=== PATIENT | female | born 1945 | race Caucasian/White ===

== ENCOUNTER 2018-07-12 11:53 | Outpatient (CLI) | payer MEDICARE, OTHER | END 2018-07-12 11:54 | disposition home or self-care (01) | LOC: DI 11:53 | PROVIDERS: ATTEND Internal Medicine | DX: Z12.31 Encounter for screening mammogram for malignant neoplasm of breast (principal) | CPT/HCPCS: 77063 ==

== ENCOUNTER 2019-07-12 13:10 | Outpatient (CLI) | payer MEDICARE, OTHER ==
--- NOTE | 2019-07-12 15:35 | Mammography Report ---
Reason: SCREENING MAMMO Procedure Date: 07/12/2019 Accession Number: [id number] / [id number] Procedure: YOLIE - Screening Mammo w/Julián CPT Code: FULL RESULT: EXAM: Screening Mammo w/Julián DATE: 07/12/2019 2:07 PM CLINICAL HISTORY: Screening TECHNIQUE: (B) - Bilateral CC and MLO views were obtained. COMPARISON: 07/12/2018 PARENCHYMAL PATTERN: (A) - The breasts demonstrate scattered fibroglandular densities bilaterally. FINDINGS: Redemonstration of multiple scattered left breast nodules. The dominant nodule is a lobulated well-circumscribed mass with a radiolucent fatty hilum located in the retroareolar left breast, anterior one third, measuring 10 mm maximal diameter, unchanged. Otherwise, there are no suspicious masses, calcifications, or areas of distortion. IMPRESSION: Benign findings. BI-RADS category 2. Presumed retroareolar intramammary lymph node. RECOMMENDATION: (ANNUAL) - Recommend routine annual screening mammography. BI-RADS CATEGORY: (2) - Benign Findings. STANDARD QUALIFYING STATEMENTS: 1. This examination was not reviewed with the aid of Computer-Aided Detection (CAD). 2. A negative or benign imaging report should not preclude biopsy if clinically suspicious findings are present. 3. Dense breasts may obscure an underlying neoplasm. 4. This examination was reviewed with the aid of 3D breast imaging (tomosynthesis).
== END 2019-07-12 13:11 | disposition home or self-care (01) ==
LOC: DI 13:10
DX: Z12.31 Encounter for screening mammogram for malignant neoplasm of breast (principal)
CPT/HCPCS: 77063; 77067

== ENCOUNTER 2021-04-25 08:00 | Outpatient (CLI) | payer MEDICARE, OTHER ==
--- NOTE | 2021-04-25 17:18 | XRAY Report ---
PROCEDURE: Knee 4 View RT INDICATIONS: RIGHT KNEE PAIN TECHNIQUE: 4 views of the right knee(s) were acquired. COMPARISON: None. FINDINGS: Bones: No fractures or dislocations. Mild to moderate tricompartment osteoarthritis is seen more pr ominent in medial femoral tibial compartment. No suspicious bony lesions. Soft tissues: Small to moderate suprapatellar joint effusion is noted. No suspicious soft tissue calc ifications. IMPRESSION: Mild to moderate tricompartmental osteoarthritis more prominent in medial femoral tibial compartment. Small to moderate amount of suprapatellar joint effusion. No fracture or dislocation. Reviewed by: Adarsh Calles MD on 04/25/2021 5:17 PM PDT Approved by: Adarsh Calles MD on 04/25/2021 5:17 PM PDT Station ID: [id number]
== END 2021-04-25 23:59 | disposition home or self-care (01) ==
LOC: DI.S 08:00
PROVIDERS: ATTEND Physician Assistant
DX: M17.11 Unilateral primary osteoarthritis, right knee (principal); M25.461 Effusion, right knee

== ENCOUNTER 2021-05-14 14:16 | Outpatient (CLI) | payer MEDICARE, OTHER | END 2021-05-14 14:17 | disposition EMS.NT | LOC: EMS 14:16 | DX: M54.9 Dorsalgia, unspecified (principal); R11.0 Nausea ==

== ENCOUNTER 2022-02-24 08:00 | Outpatient (CLI) | payer MEDICARE, OTHER ==
--- NOTE | 2022-02-24 17:06 | XRAY Report ---
PROCEDURE: Chest 2 View X-Ray INDICATIONS: PRODUCTIVE COUGH TECHNIQUE: 2 view(s) of the chest. COMPARISON: None. FINDINGS: Surgical changes and devices: None. Lungs and pleura: No pleural effusions or pneumothorax. Lungs are clear. Mediastinum: Mediastinal contours are normal. Heart size is normal. Bones and chest wall: No suspicious bony abnormalities. Multilevel degenerative disc and endplate ch georgie in the thoracolumbar spine. Soft tissues appear unremarkable. IMPRESSION: No acute cardiopulmonary disease. Reviewed by: Nellie Edge MD on 02/24/2022 5:04 PM PDT Approved by: Nellie Edge MD on 02/24/2022 5:04 PM PDT Station ID: [id number]
== END 2022-02-24 23:59 | disposition home or self-care (01) ==
LOC: DI.S 08:00
PROVIDERS: ATTEND Physician Assistant Medical
DX: R05.8 Other specified cough (principal); Z20.822 Contact with and (suspected) exposure to COVID-19
CPT/HCPCS: 71046; U0004

== ENCOUNTER 2023-01-01 12:37 | Emergency (ER) | payer MEDICARE, OTHER ==
--- OUTSIDE RECORDS SUMMARY | 2023-01-01 12:57 | EXTERNAL MEDICAL SUMMARY RPT | Continuity of Care Document ---
:1945 Author Organization [facility] Address [address] [place] [address] Phone Care Team Providers Name Role Phone Unavailable Unavailable Unavailable Yovani Norman, Albert Unavailable Unavailable Mi Patient Registrar, Maribell Unavailable Unavai lable Allergies No information. Encounters No information. Functional Status No information. Immunizations No information. Medications date description facility 2022-10-26 00:00 [facility]relvir[facility]ritonavir [facility] 2022-10-26 00:00 nirmatrelvir-ritonavir [facility] 2022-10-26 00:00 hydrochlorothiazide [facility] 2022-10-27 00:00 hydrochlorothiazide [facility] 2022-10-28 00:00 hydrochlorothiazide [facility] 2022-10-26 00:00 estradiol [facility] 2022-10-27 00:00 estradiol [facility] 2022-10-28 00:00 estradiol [facility] 2022-10-26 00:00 hydrochlorothiazide [facility] 2022-10-27 00:00 hydrochlorothiazide [facility] 2022-10-28 00:00 hydrochlorothiazide [facility] 2022-10-26 00:00 nirmatrelvir-ritonavir [facility] 2022-10-26 00:00 nirmatrelvir-ritonavir [facility] 2022-10-26 00:00 meloxicam [facility] 2022-10-27 00:00 meloxicam [facility] 2022-10-28 00:00 meloxicam [facility] 2022-10-26 00:00 estradiol [facility] 2022-10-27 00:00 estradiol [facility] 2022-10-28 00:00 estradiol [facility] 2022-10-26 00:00 simvastatin [facility] 2022-10-27 00:00 simvastatin [facility] 2022-10-28 00:00 simvastatin [facility] 2022-10-26 00:00 nirmatrelvir-ritonavir [facility] 2022-10-26 00:00 nirmatrelvir-ritonavir [facility] 2022-10-26 00:00 estradiol [facility] 2022-10-27 00:00 estradiol [facility] 2022-10-28 00:00 estradiol [facility] 2022-10-26 00:00 quinapril [facility] 2022-10-27 00:00 quinapril [facility] 2022-10-28 00:00 quinapril [facility] 2022-10-26 00:00 simvastatin [facility] 2022-10-27 00:00 simvastatin [facility] 2022-10-28 00:00 simvastatin [facility] 2022-10-26 00:00 gabapentin [facility] 2022-10-27 00:00 gabapentin [facility] 2022-10-28 00:00 gabapentin [facility] 2022-10-26 00:00 hydrochlorothiazide [facility] 2022-10-27 00:00 hydrochlorothiazide [facility] 2022-10-28 00:00 hydrochlorothiazide [facility] 2022-10-26 00:00 quinapril [facility] 2022-10-27 00:00 quinapril [facility] 2022-10-28 00:00 quinapril [facility] 2022-10-26 00:00 estradiol [facility] 2022-10-27 00:00 estradiol [facility] 2022-10-28 00:00 estradiol [facility] 2022-10-26 00:00 quinapril [facility] 2022-10-27 00:00 quinapril [facility] 2022-10-28 00:00 quinapril [facility] 2022-10-26 00:00 hydrochlorothiazide [facility] 2022-10-27 00:00 hydrochlorothiazide [facility] 2022-10-28 00:00 hydrochlorothiazide [facility] 2022-10-26 00:00 simvastatin [facility] 2022-10-27 00:00 simvastatin [facility] 2022-10-28 00:00 simvastatin [facility] 2022-10-26 00:00 gabapentin [facility] 2022-10-27 00:00 gabapentin [facility] 2022-10-28 00:00 gabapentin [facility] 2022-10-26 00:00 meloxicam [facility] 2022-10-27 00:00 meloxicam [facility] 2022-10-28 00:00 meloxicam [facility] 2022-10-26 00:00 quinapril [facility] 2022-10-27 00:00 quinapril [facility] 2022-10-28 00:00 quinapril [facility] 2022-10-26 00:00 gabapentin [facility] 2022-10-27 00:00 gabapentin [facility] 2022-10-28 00:00 gabapentin [facility] 2022-10-26 00:00 simvastatin [facility] 2022-10-27 00:00 simvastatin [facility] 2022-10-28 00:00 simvastatin [facility] 2022-10-26 00:00 meloxicam [facility] 2022-10-27 00:00 meloxicam [facility] 2022-10-28 00:00 meloxicam [facility] 2022-10-26 00:00 meloxicam [facility] 2022-10-27 00:00 meloxicam [facility] 2022-10-28 00:00 meloxicam [facility] 2022-10-26 00:00 gabapentin [facility] 2022-10-27 00:00 [facility]abapentin [facility] 2022-10-28 00:00 gabapentin [facility] Problems date description facility 2022-10-26 00:00 Acute COVID-19 [facility] 2022-10-26 00:00 COVID-19 [facility] Procedures date description facility 2022-10-26 00:00 Visit Code Hold [facility] Results/Labs No information. Social History date description facility 2022-10-26 00:00 Former smoker [facility] Vital Signs date measurement value units 2022-10-26 00:00 BMI 33.38 kg/m2 2022-10-26 00:00 BP_diastolic 85 mmHg 2022-10-26 00:00 BP_systolic 194 mmHg 2022-10-26 00:00 heart_rate 86 /min 2022-10-26 00:00 height_metric 154.94 cm 2022-10-26 00:00 height_standard 61 in 2022-10-26 00:00 respiration_rate 16 /min 2022-10-26 00:00 temperature_metric 37.17 C 2022-10-26 00:00 temperature_standard 98.9 F 2022-10-26 00:00 weight_metric 79.83 kg 2022-10-26 00:00 weight_standard 176 lb
--- NOTE | 2023-01-01 13:15 | ED Physician Documentation ---
PD HPI ABD PAIN - Stated complaint Stated Complaint: ABD PX,VOMITING,GEN WEAKNESS - Chief complaint Chief Complaint: Abd Pain - History obtained from History obtained from: Patient - Additional information Additional information: 77-year-old woman with history of hypertension and type 2 diabetes and very remote history of stage I ovarian cancer approximately 30 years ago and oophorectomy and prior to that had a hysterectomy for fibroid uterus presents with severe abdominal pain starting 2 nights ago. Initially was cramping and fleeting but intermittent but when she had it was very severe. Pain is much better now but has not been able to eat or drink simply due to lack of appetite since then. She had a large bowel movement on the first day and since then has had a small bowel movement today. Had nausea the first night with vomiting, this is pretty much resolved now 2. No associated fevers. PD PAST MEDICAL HISTORY - Allergies Allergies/Adverse Reactions: Allergies Allergy/AdvReac Type Severity Reaction Status Date / Time Penicillins Allergy Unknown Verified 01/01/23 12:48 PD ED PE NORMAL - Vitals Vital signs reviewed: Yes - General General: Alert and oriented X 3, No acute distress - Cardiac Cardiac: RRR, No murmur - Respiratory Respiratory: No respiratory distress, Clear bilaterally - Abdomen Abdomen: Other (Hyperactive bowel sounds with left lower quadrant tenderness but no surgical signs) - Derm Derm: No rash - Extremities Extremities: No edema, No calf tenderness / cord - Neuro Neuro: Alert and oriented X 3, Normal speech Results - Vitals Vitals: Vital Signs - 24 hr 01/01/23 01/01/23 01/01/23 12:44 15:06 16:34 Temperature 36.5 C Heart Rate 84 75 80 Respiratory 16 20 18 Rate Blood Pressure 150/75 H 184/81 H 186/72 H O2 Saturation 99 98 96 Oxygen O2 Source Room air - Labs Labs: Laboratory Tests 01/01/23 01/01/23 01/01/23 13:35 13:49 15:30 WBC 8.1 RBC 4.18 L Hgb 13.0 Hct 39.5 MCV 94.5 MCH 31.1 H MCHC 32.9 RDW 11.9 L Plt Count 240 MPV 9.9 Neut # (Auto) 6.0 Lymph # (Auto) 1.0 L [place] # (Auto) 0.9 Eos # (Auto) 0.1 Baso # (Auto) 0.0 Absolute Nucleated RBC 0.00 Nucleated RBC % 0.0 Sodium 133 L Potassium 4.0 Chloride 95 L Carbon Dioxide 26 Anion Gap 12.0 BUN 25 H Creatinine 1.0 Estimated GFR (MDRD) 54 L Glucose 238 H Calcium 9.3 Total Bilirubin 1.0 AST 16 ALT 22 Alkaline Phosphatase 60 Total Protein 6.8 Albumin 4.0 Globulin 2.8 Albumin/Globulin Ratio 1.4 Lipase 35 Urine Color YELLOW Urine Clarity CLEAR Urine pH 6.0 Ur Specific [place] 1.015 Urine Protein NEGATIVE Urine Glucose (UA) 100 H Urine Ketones TRACE Urine Occult Blood NEGATIVE Urine Nitrite NEGATIVE Urine Bilirubin NEGATIVE Urine Urobilinogen 0.2 (NORMAL) Ur Leukocyte Esterase NEGATIVE Ur Microscopic Review NOT INDICATED Urine Culture Comments NOT INDICATED - Rads (name of study) CT A/P Relevant Findings:: Final report received, EMP independent interpretation of test (CT of the abdomen pelvis with IV contrast demonstrating fluid-filled small bowel loops, ileus versus partial SBO, diverticulosis, small hiatal hernia and distal esophageal thickening, fatty liver, atherosclerosis) PD Medical Decision Making - ED course ED course: 77-year-old woman had severe abdominal pain 2 nights ago and really has not been eating or drinking much since but the severe pain is gone. She has a left-sided abdominal tenderness and a CT showing ileus versus partial SBO. Given the time course and history above I suspect she probably has a resolving, self resolving SBO. I discussed the case with our on-call surgeon, Dr. Yang who recommended Gastrografin challenge and subsequent reevaluation with plain film. Subsequently we did challenge her with Gastrografin and water. She subsequently had a bowel movement and an x-ray demonstrated follow-through contrast to the colon. Departure - Departure Disposition: 01 Home, Self Care Clinical Impression: Partial small bowel obstruction Condition: Good Record reviewed to determine appropriate education?: Yes Instructions: Obstruction Sm Bowel, ED Diet Clear Liquid Comments: As discussed, given the history, CT findings I suspect you had a bowel obstruction on Wednesday which has now resolved and you are just feeling the remainder of it. As discussed, also findings on imaging demonstrating a thickened distal esophagus and you should talk with your primary care physician about referral for gastroenterology and upper endoscopy for that. Return for new or worsening symptoms. Clear liquid diet for the next 24 hours.
[2023-01-01] MEDS ORDERED: iohexoL-300 100 ML VIAL ONE (13:17)
[2023-01-01 13:41] LABS: BASOPHILS % (AUTO) 0.2 %; EOSINOPHILS # (AUTO) 0.1 10^3/uL (0.0-0.7); EOSINOPHILS % (AUTO) 1.5 %; HCT - HEMATOCRIT 39.5 % (37.0-47.0); LYMPHOCYTES % (AUTO) 12.3 %; MEAN CORPUSCULAR HEMOGLOBIN 31.1 pg (27.0-31.0); MEAN CORPUSCULAR HGB CONC 32.9 g/dL (32.0-36.0); MEAN CORPUSCULAR VOLUME 94.5 fL (81.0-99.0); MEAN PLATELET VOLUME 9.9 fL (7.9-10.8); MONOCYTES # (AUTO) 0.9 10^3/uL (0.0-1.0); MONOCYTES % (AUTO) 11.2 %; NEUTROPHILS % (AUTO) 74.6 %; PLT - PLATELET COUNT 240 10^3/uL (130-450); RED BLOOD COUNT 4.18 10^6/uL (4.20-5.40); RED CELL DISTRIBUTION WIDTH 11.9 % (12.0-15.0); WHITE BLOOD COUNT 8.1 x10^3/uL (4.8-10.8)
[2023-01-01 14:07] LABS: ALBUMIN/GLOBULIN RATIO 1.4 (1.0-2.2); CALCIUM 9.3 mg/dL (8.5-10.3); TOTAL PROTEIN 6.8 g/dL (6.7-8.2)
[2023-01-01] MEDS ORDERED: SODIUM CHLORIDE 0.9% 1,000 ML IV STA (14:24)
[2023-01-01] MEDS ORDERED: iohexoL-300 100 ML VIAL IVP ONE (15:26)
--- NOTE | 2023-01-01 15:33 | CT Report ---
PROCEDURE: ABDOMEN/PELVIS W INDICATIONS: abd pain CONTRAST: 100ml omni 300 TECHNIQUE: After the administration of intravenous contrast, 5 mm thick sections acquired from the diaphragms to the symphysis. 5 mm thick coronal and sagittal reformats were acquired. For radiation dose reducti on, the following was used: automated exposure control, adjustment of mA and/or kV according to jess ent size. COMPARISON: None. FINDINGS: Image quality: Excellent. ABDOMEN: Lung bases: There is a tiny nodule in the left lower lobe (series 4 image 11). Heart size is normal. There is a small hiatal hernia. Concentric thickening of the distal esophagus. Solid organs: Liver and spleen are normal in size and enhancement. There is moderate hepatic steatos is. Gallbladder is normal. Biliary system is non dilated. Pancreas enhances normally. No adrenal n odules. Kidneys demonstrate normal size and enhancement, without hydronephrosis. Peritoneum and bowel: Fluid-filled proximal small loops are mildly dilated measuring up to 3.7 cm and containing air-fluid levels. Distal small bowel appears normal in caliber. A transitional point is n ot definitively identified. Scattered colonic diverticula. No CT findings to suggest acute diverticulitis. No free fluid or air. Nodes and vessels: No retroperitoneal or mesenteric adenopathy by size criteria. Aorta and inferior vena cava are normal in size. Owxblugn-sw-isawey atherosclerotic calcification. Miscellaneous: No ventral hernias. Mild stranding in the anterior abdominal wall adjacent to the um bilicus, nonspecific. PELVIS: Genitourinary: Bladder wall thickness is normal. Miscellaneous: No inguinal hernias or adenopathy. Bones: No suspicious bony lesions. No vertebral body compression fractures. Grade 1 anterolisthesi s of L4 on L5. Mild levoscoliosis. Severe spondylolysis. IMPRESSION: 1. Fluid-filled small bowel loops are mildly dilated proximally, tapering to normal caliber distally. A transitional point is not definitively identified. There are multiple air-fluid levels. The CT fin dings may be secondary to ileus but early or partial small bowel obstruction is a differential diagno sis. 2. Diverticulosis without acute diverticulitis. 3. Small hiatal hernia. There is concentric thickening of the distal esophagus. Consider esophagram o r EGD for further evaluation. 4. Hepatic steatosis. 5. Dlhgfsvv-[id number]-zsdnwm atherosclerosis. Reviewed by: Suki Ballesteros MD on 01/01/2023 3:31 PM PDT Approved by: Suki Ballesteros MD on 01/01/2023 3:31 PM PDT Station ID: [id number]
[2023-01-01] MEDS ORDERED: DIATR MEGLU/DIATRIZOATE SODIUM 120 ML BOTTLE PO ONE (15:36)
[2023-01-01 15:39] LABS: BILIRUBIN,URINE NEGATIVE (NEGATIVE); GLUCOSE, URINE (UA) 100 mg/dL (NEGATIVE); KETONES,URINE (UA) TRACE mg/dL (NEGATIVE); LEUKOCYTE ESTERASE, URINE NEGATIVE (NEGATIVE); NITRITE,URINE NEGATIVE (NEGATIVE); OCCULT BLOOD,URINE NEGATIVE (NEGATIVE); PROTEIN,URINE NEGATIVE (NEGATIVE); UROBILINOGEN,URINE 0.2 (NORMAL) E.U./dL (NORMAL)
[2023-01-01 15:40] LABS: CLARITY,URINE CLEAR (CLEAR)
[2023-01-01] MEDS ORDERED: DIATR MEGLU/DIATRIZOATE SODIUM 120 ML BOTTLE ONE (16:23)
--- NOTE | 2023-01-01 18:42 | XRAY Report ---
PROCEDURE: Abdomen 1 View X-Ray INDICATIONS: Possible SBO status post Gastrografin TECHNIQUE: One view of the abdomen acquired. COMPARISON: CT, 01/01/2023 FINDINGS: Surgical changes and devices: None. Bowel: Bowel gas pattern is normal. The administered Gastrografin contrast can be seen within the c olon and the distal small bowel. Soft tissues: No suspicious abdominal calcifications. Visualized solid organ contours appear normal in size. Bones: No suspicious bony lesions. IMPRESSION: Oral contrast has reached the colon, which confirms no complete small bowel obstruction. Differential diagnosis includes ileus as well as resolved small bowel obstruction, and partial small bowel obstru ction. Reviewed by: Miles Borrero MD on 01/01/2023 5:40 PM ANDRE Approved by: Miles Borrero MD on 01/01/2023 5:40 PM ANDRE Station ID: [id number]
[2023-01-01 19:06] VITALS: BP 173/91
== END 2023-01-01 19:14 | disposition home or self-care (01) ==
LOC: ED 12:37
DX: K56.600 Partial intestinal obstruction, unspecified as to cause (principal); I10 Essential (primary) hypertension
CPT/HCPCS: 36415; 74018; 74177; 80053; 81003; 83690; 85025; 99284; 99285; Q9963; Q9967; 81001; 87086

== ENCOUNTER 2023-03-10 13:10 | Outpatient (CLI) | payer MEDICARE, OTHER | END 2023-03-10 23:59 | disposition EMS.NT | LOC: EMS 13:10 | DX: R42 Dizziness and giddiness (principal) ==

== ENCOUNTER 2023-06-07 10:29 | Outpatient (CLI) | payer MEDICARE, OTHER ==
[2023-06-07 15:30] LABS: BASOPHILS % (AUTO) 0.7 %; EOSINOPHILS # (AUTO) 0.2 10^3/uL (0.0-0.7); HCT - HEMATOCRIT 36.5 % (37.0-47.0); HGB - HEMOGLOBIN 11.9 g/dL (12.0-16.0); LYMPHOCYTES # (AUTO) 1.8 10^3/uL (1.5-3.5); LYMPHOCYTES % (AUTO) 32.2 %; MEAN CORPUSCULAR HEMOGLOBIN 31.4 pg (27.0-31.0); MEAN CORPUSCULAR HGB CONC 32.6 g/dL (32.0-36.0); MEAN CORPUSCULAR VOLUME 96.3 fL (81.0-99.0); MEAN PLATELET VOLUME 10.7 fL (7.9-10.8); MONOCYTES # (AUTO) 0.5 10^3/uL (0.0-1.0); MONOCYTES % (AUTO) 8.6 %; NEUTROPHILS % (AUTO) 54.3 %; PLT - PLATELET COUNT 206 10^3/uL (130-450); RED BLOOD COUNT 3.79 10^6/uL (4.20-5.40); RED CELL DISTRIBUTION WIDTH 12.1 % (12.0-15.0); WHITE BLOOD COUNT 5.5 x10^3/uL (4.8-10.8)
[2023-06-07 15:38] LABS: ALBUMIN 4.2 g/dL (3.2-5.5); ALBUMIN/GLOBULIN RATIO 1.9 (1.0-2.2); ALKALINE PHOSPHATASE 64 IU/L (42-121); ALT ALANINE AMINOTRANSFERASE 20 IU/L (10-60); AST ASPARTATE AMINOTRANSFERASE 16 IU/L (10-42); BILIRUBIN,TOTAL 0.5 mg/dL (0.2-1.0); BUN - BLOOD UREA NITROGEN 23 mg/dL (6-20); CARBON DIOXIDE - CO2 29 mmol/L (21-32); CHLORIDE 101 mmol/L (101-111); CHOL/HDL RATIO 3.4 (<4.4); CHOLESTEROL 179 mg/dL; CREATININE 1.1 mg/dL (0.6-1.3); GFR - MDRD 48 (>89); GLUCOSE 129 mg/dL (74-104); HDL CHOLESTEROL 52 mg/dL; LDL CHOLESTEROL,CALCULATED 78 mg/dL; LDL/HDL RATIO 1.5 (<4.4); POTASSIUM 4.6 mmol/L (3.5-4.5); SODIUM 135 mmol/L (135-145); TOTAL PROTEIN 6.4 g/dL (6.4-8.9); TRIGLYCERIDES 245 mg/dL (48-352); VLDL CHOLESTEROL 49 mg/dL
[2023-06-07 20:46] LABS: ESTIMATED AVERAGE GLUCOSE 148 mg/dL (70-100); HEMOGLOBIN A1c% 6.8 % (4.27-6.07)
== END 2023-06-07 10:30 | disposition home or self-care (01) ==
LOC: LAB.S 10:29
PROVIDERS: ATTEND Internal Medicine
DX: I10 Essential (primary) hypertension (principal); E11.9 Type 2 diabetes mellitus without complications; M17.9 Osteoarthritis of knee, unspecified
CPT/HCPCS: 36415; 80053; 80061; 83036; 83721; 85025

== ENCOUNTER 2023-06-15 13:11 | Outpatient (CLI) | payer MEDICARE, OTHER ==
[2023-06-15 13:49] LABS: ALBUMIN 4.3 g/dL (3.2-5.5); ALBUMIN/GLOBULIN RATIO 2.3 (1.0-2.2); BILIRUBIN,TOTAL 0.4 mg/dL (0.2-1.0); CALCIUM 9.9 mg/dL (8.5-10.3); POTASSIUM 4.9 mmol/L (3.5-4.5); TOTAL PROTEIN 6.2 g/dL (6.4-8.9)
[2023-06-15 14:15] LABS: CREATININE,URINE 20.1 mg/dL
[2023-06-15 14:20] LABS: MICROALBUMIN,URINE < 0.7 mg/dL
== END 2023-06-15 13:12 | disposition home or self-care (01) ==
LOC: LAB 13:11
PROVIDERS: ATTEND Internal Medicine
DX: Z91.89 Other specified personal risk factors, not elsewhere classified (principal); E11.9 Type 2 diabetes mellitus without complications
CPT/HCPCS: 36415; 80053; 82043; 82570

== ENCOUNTER 2023-11-22 10:05 | Outpatient (CLI) | payer MEDICARE, OTHER | END 2023-11-22 10:06 | disposition home or self-care (01) | LOC: LAB.S 10:05 | PROVIDERS: ATTEND Physician Assistant Medical | DX: N39.0 Urinary tract infection, site not specified (principal) | CPT/HCPCS: 87086; 87181 ==

== ENCOUNTER 2023-11-24 14:05 | Emergency (ER) | payer MEDICARE, OTHER ==
[2023-11-24 14:46] LABS: BILIRUBIN,URINE NEGATIVE (NEGATIVE); GLUCOSE, URINE (UA) NEGATIVE (NEGATIVE); KETONES,URINE (UA) NEGATIVE (NEGATIVE); LEUKOCYTE ESTERASE, URINE NEGATIVE (NEGATIVE); NITRITE,URINE NEGATIVE (NEGATIVE); OCCULT BLOOD,URINE NEGATIVE (NEGATIVE); PROTEIN,URINE NEGATIVE (NEGATIVE); UROBILINOGEN,URINE 0.2 (NORMAL) E.U./dL (NORMAL)
[2023-11-24 14:47] LABS: CLARITY,URINE CLEAR (CLEAR)
--- NOTE | 2023-11-24 14:53 | ED Physician Documentation ---
History of Present Illness - Stated complaint Stated Complaint: CONFUSION,GEN WEAKNESS - Chief complaint Chief Complaint: General - History obtained from History obtained from: Patient, Family - History of Present Illness Timing: Other (months) Pain level max: 0 Pain level now: 0 - Additonal information Additional information: Patient is a 77-year-old female who presents to the emergency department with confusion. This been ongoing for the past several months. She is accompanied by her daughter. The patient is unable to give much history. The patient's daughter states that the patient lives alone, she has had increasing episodes of confusion in frequency and severity over the past 4 to 5 months. The patient has been recurrently treated for UTIs. Family states no other medication changes. Recently did finish an antibiotic. No fevers. No chills. No nausea or vomiting. No falls. No trauma. No headaches. No seizure activity. Patient states that she did not take her blood pressure medication today. Review of Systems Constitutional: denies: Fever, Chills Respiratory: denies: Cough GI: denies: Vomiting, Diarrhea Skin: denies: Rash Musculoskeletal: denies: Neck pain, Back pain Neurologic: denies: Headache PD PAST MEDICAL HISTORY - Past Medical History Past Medical History: Yes Cardiovascular: Hypertension, High cholesterol Endocrine/Autoimmune: Type 2 diabetes - Present Medications Home Medications: Ambulatory Orders Medication Instructions Recorded Confirmed Celecoxib 100 mg PO DAILY 11/24/23 Gabapentin [Neurontin] 300 mg PO TID 11/24/23 Lisinopril [Zestril] 40 mg PO DAILY 11/24/23 Nitrofurantoin [Macrobid] 100 mg PO TID 11/24/23 QUEtiapine [SEROquel] 25 mg PO QPM #30 tablet 11/24/23 Simvastatin [Zocor] 40 mg PO DAILY 11/24/23 hydroCHLOROthiazide [Hydrodiuril] 25 mg PO DAILY 11/24/23 metFORMIN [Glucophage] 750 mg PO DAILY 11/24/23 traMADol [Ultram] 50 mg PO TID 11/24/23 - Allergies Allergies/Adverse Reactions: Allergies Allergy/AdvReac Type Severity Reaction Status Date / Time Penicillins Allergy Unknown Verified 11/24/23 14:33 PD ED PE NORMAL - Vitals Vital signs reviewed: Yes - General General: Alert and oriented X 3, No acute distress - HEENT HEENT: PERRL, Moist mucous membranes - Neck Neck: Supple, no meningeal sign - Cardiac Cardiac: RRR, Strong equal pulses - Respiratory Respiratory: No respiratory distress, Clear bilaterally - Abdomen Abdomen: Soft, Non tender, Non distended - Derm Derm: Warm and dry - Extremities Extremities: Normal ROM s pain, No edema, No calf tenderness / cord - Neuro Neuro: Alert and oriented X 3, Other (Patient is alert and oriented x 3, but slow to respond, often loses her train of thought during conversation and is easily distractible. Difficulty stringing thoughts fully together.) - Psych Psych: Normal mood, Normal affect Results - Vitals Vitals: Vital Signs - 24 hr 11/24/23 11/24/23 11/24/23 14:08 15:02 17:17 Temperature 2.2 C L 36.4 C L Heart Rate 66 73 Respiratory 17 18 Rate Blood Pressure 206/122 H 182/78 H O2 Saturation 100 100 11/24/23 11/24/23 18:08 18:40 Temperature 36.5 C Heart Rate 68 73 Respiratory 17 16 Rate Blood Pressure 153/64 H 152/72 H O2 Saturation 99 100 Oxygen O2 Source Room air - Labs Labs: Laboratory Tests 11/24/23 11/24/23 11/24/23 14:20 14:34 15:00 WBC 6.4 RBC 4.02 L Hgb 12.2 Hct 36.4 L MCV 90.5 MCH 30.3 MCHC 33.5 RDW 11.7 L Plt Count 303 MPV 9.6 Neut # (Auto) 4.1 Lymph # (Auto) 1.5 [place] # (Auto) 0.5 Eos # (Auto) 0.2 Baso # (Auto) 0.0 Absolute Nucleated RBC 0.00 Nucleated RBC % 0.0 Sodium Potassium Chloride Carbon Dioxide Anion Gap BUN Creatinine Estimated GFR (MDRD) Glucose POC Whole Bld Glucose Calcium Magnesium Total Bilirubin AST ALT Alkaline Phosphatase Total Protein Albumin Globulin Albumin/Globulin Ratio Lipase TSH Urine Color YELLOW Urine Clarity CLEAR Urine pH 6.0 Ur Specific [place] <=1.005 Urine Protein NEGATIVE Urine Glucose (UA) NEGATIVE Urine Ketones NEGATIVE Urine Occult Blood NEGATIVE Urine Nitrite NEGATIVE Urine Bilirubin NEGATIVE Urine Urobilinogen 0.2 (NORMAL) Ur Leukocyte Esterase NEGATIVE Ur Microscopic Review NOT INDICATED Urine Culture Comments NOT INDICATED Urine Opiates Screen NEGATIVE Ur Buprenorphine Scrn NEGATIVE Ur Oxycodone Screen NEGATIVE Urine Methadone Screen NEGATIVE Ur Barbiturates Screen NEGATIVE Ur Tricyclics Screen NEGATIVE Ur Phencyclidine Scrn NEGATIVE Ur Amphetamine Screen NEGATIVE U Methamphetamines Scrn NEGATIVE U Benzodiazepines Scrn NEGATIVE Urine Cocaine Screen NEGATIVE U Cannabinoids Screen NEGATIVE Ur Drug Screen Comment CUTOFF CONC BELOW: Ethyl Alcohol 11/24/23 11/24/23 15:00 16:19 WBC RBC Hgb Hct MCV MCH MCHC RDW Plt Count MPV Neut # (Auto) Lymph # (Auto) [place] # (Auto) Eos # (Auto) Baso # (Auto) Absolute Nucleated RBC Nucleated RBC % Sodium 125 L Potassium 4.1 Chloride 90 L Carbon Dioxide 27 Anion Gap 8.0 BUN 17 Creatinine 0.9 Estimated GFR (MDRD) 61 L Glucose 143 H POC Whole Bld Glucose 126 H Calcium 9.7 Magnesium 1.7 Total Bilirubin 0.6 AST 22 ALT 25 Alkaline Phosphatase 58 Total Protein 6.7 Albumin 4.8 Globulin 1.9 L Albumin/Globulin Ratio 2.5 H Lipase 55 TSH 2.85 Urine Color Urine Clarity Urine pH Ur Specific [place] Urine Protein Urine Glucose (UA) Urine Ketones Urine Occult Blood Urine Nitrite Urine Bilirubin Urine Urobilinogen Ur Leukocyte Esterase Ur Microscopic Review Urine Culture Comments Urine Opiates Screen Ur Buprenorphine Scrn Ur Oxycodone Screen Urine Methadone Screen Ur Barbiturates Screen Ur Tricyclics Screen Ur Phencyclidine Scrn Ur Amphetamine Screen U Methamphetamines Scrn U Benzodiazepines Scrn Urine Cocaine Screen U Cannabinoids Screen Ur Drug Screen Comment Ethyl Alcohol < 10.0 - Rads (name of study) brain MRI Relevant Findings:: Final report received, See rad report PD Medical Decision Making - ED course Complexity details: reviewed results, re-evaluated patient, considered differential, d/w patient, d/w family ED course: No acute findings on MRI. Laboratory testing does show hyponatremia, was given 2 L of IV fluid. Given the gradual onset of her confusion and her normal sodium levels during the confusion, I think this is more likely career representative of dementia. Recommend that she follow-up with her doctor for further testing. Patient does not want to stay in the hospital. Family has been staying with the patient. She states that she will take the Seroquel if it is prescribed for her, will prescribe this to help with agitation and sundowning. Family does report that she becomes agitated, especially at night. No UTI. Patient is well-appearing, nontoxic. Afebrile. Patient and family counseled regarding signs and symptoms for which I believe and urgent re-evaluation would be necessary. Patient with good understanding of and agreement to plan and is comfortable going home at this time This document was made in part using voice recognition software. While efforts are made to proofread this document, sound alike and grammatical errors may occur. Departure - Departure Disposition: 01 Home, Self Care Clinical Impression: Hyponatremia, Confusion Condition: Stable Instructions: ED Confusion Follow-Up: Liza Crooks MD [Primary Care Provider] - Within 1 week Prescriptions: QUEtiapine [SEROquel] 25 mg PO QPM #30 tablet Comments: Your sodium levels were low today. This can cause confusion, but given your history of this worsening over several months I am concerned about dementia. Your MRI does not show any acute findings today Your sodium level should be rechecked with your doctor in 1 week. Will also start you on Seroquel, this medication can be taken at night and will help with your confusion as well. The dose can be increased with her doctor as needed. The medication was sent to [facility] in [place]. Forms: PCP List Discharge Date/Time: 11/24/23 18:52
[2023-11-24 15:12] LABS: BASOPHILS % (AUTO) 0.6 %; EOSINOPHILS # (AUTO) 0.2 10^3/uL (0.0-0.7); EOSINOPHILS % (AUTO) 3.7 %; HCT - HEMATOCRIT 36.4 % (37.0-47.0); HGB - HEMOGLOBIN 12.2 g/dL (12.0-16.0); LYMPHOCYTES # (AUTO) 1.5 10^3/uL (1.5-3.5); LYMPHOCYTES % (AUTO) 23.9 %; MEAN CORPUSCULAR HEMOGLOBIN 30.3 pg (27.0-31.0); MEAN CORPUSCULAR HGB CONC 33.5 g/dL (32.0-36.0); MEAN CORPUSCULAR VOLUME 90.5 fL (81.0-99.0); MEAN PLATELET VOLUME 9.6 fL (7.9-10.8); MONOCYTES # (AUTO) 0.5 10^3/uL (0.0-1.0); MONOCYTES % (AUTO) 8.2 %; NEUTROPHILS # (AUTO) 4.1 10^3/uL (1.5-6.6); NEUTROPHILS % (AUTO) 63.3 %; PLT - PLATELET COUNT 303 10^3/uL (130-450); RED BLOOD COUNT 4.02 10^6/uL (4.20-5.40); RED CELL DISTRIBUTION WIDTH 11.7 % (12.0-15.0); WHITE BLOOD COUNT 6.4 x10^3/uL (4.8-10.8)
[2023-11-24 15:25] LABS: AMPHETAMINE SCREEN,URINE NEGATIVE (NEGATIVE); BARBITURATE SCREEN,UR NEGATIVE (NEGATIVE); BENZODIAZEPINES SCREEN, URINE NEGATIVE (NEGATIVE); BUPRENORPHINE SCREEN, URINE NEGATIVE (NEGATIVE); COCAINE SCREEN URINE NEGATIVE (NEGATIVE); METHADONE SCREEN, URINE NEGATIVE (NEGATIVE); METHAMPHETAMINES SCREEN, URINE NEGATIVE (NEGATIVE); OPIATE SCREEN, URINE NEGATIVE (NEGATIVE); OXYCODONE SCREEN, URINE NEGATIVE (NEGATIVE); THC CANNABINOID SCREEN, URINE NEGATIVE (NEGATIVE); TRICYCLIC ANTIDEPRESSANT,URINE NEGATIVE (NEGATIVE)
[2023-11-24 15:36] LABS: ALBUMIN 4.8 g/dL (3.2-5.5); ALBUMIN/GLOBULIN RATIO 2.5 (1.0-2.2); ALKALINE PHOSPHATASE 58 IU/L (42-121); ALT ALANINE AMINOTRANSFERASE 25 IU/L (10-60); AST ASPARTATE AMINOTRANSFERASE 22 IU/L (10-42); BILIRUBIN,TOTAL 0.6 mg/dL (0.2-1.0); BUN - BLOOD UREA NITROGEN 17 mg/dL (6-20); CALCIUM 9.7 mg/dL (8.5-10.3); CARBON DIOXIDE - CO2 27 mmol/L (21-32); CHLORIDE 90 mmol/L (101-111); CREATININE 0.9 mg/dL (0.6-1.3); ETOH - ETHANOL < 10.0 mg/dL; GFR - MDRD 61 (>89); GLUCOSE 143 mg/dL (74-104); LIPASE 55 U/L (11-82); MAGNESIUM 1.7 mg/dL (1.7-2.3); POTASSIUM 4.1 mmol/L (3.5-4.5); SODIUM 125 mmol/L (135-145); TOTAL PROTEIN 6.7 g/dL (6.4-8.9)
[2023-11-24 15:47] LABS: THYROID STIMULATING HORMONE 2.85 uIU/mL (0.34-5.60)
--- NOTE | 2023-11-24 15:54 | MRI Report ---
PROCEDURE: Brain WO INDICATIONS: confusion TECHNIQUE: Noncontrast axial T1 spin echo, axial T2 fast spin echo, sagittal and axial FLAIR, coronal T2 fast sp in echo, axial gradient echo, axial diffusion and ADC through the brain. COMPARISON: None. FINDINGS: Image quality: Excellent. CSF Spaces: Basal cisterns are patent. No extra-axial fluid collections. Ventricles are normal in size and shape. Brain: No intracranial masses or hemorrhage. Frye/white matter interface is normal. There is mild d iffuse cerebral volume loss. Mild degree of patchy high FLAIR signal within the periventricular and s ubcortical white matter. Brainstem appears normal. Diffusion-weighted images demonstrate no acute i schemic insult. No chronic ischemic insults. Normal intravascular flow voids are present. Skull and face: Calvarium has normal marrow signal. Orbits appear normal. Sinuses: Small amount of left mastoid fluid. Sinuses and mastoids are otherwise clear. IMPRESSION: 1. No acute process. No recent infarct. 2. Mild volume loss and small vessel ischemic disease. Reviewed by: Harpreet Mcdowell MD on 11/24/2023 3:53 PM PST Approved by: Harpreet Mcdowell MD on 11/24/2023 3:53 PM PST Station ID: [id number]
[2023-11-24] MEDS: SODIUM CHLORIDE 0.9% 1,000 ML IV STA ×3 (16:08→17:47)
[2023-11-24] MEDS: QUEtiapine 25 MG TABLET PO STA (18:15)
[2023-11-24 18:42] VITALS: BP 152/72; O2SAT 100
== END 2023-11-24 18:52 | disposition home or self-care (01) ==
LOC: ED 14:05
DX: R41.0 Disorientation, unspecified (principal); E87.1 Hypo-osmolality and hyponatremia
CPT/HCPCS: 36415; 70551; 80053; 80306; 81003; 83690; 83735; 84443; 85025; 96360; 96361; 99283; 99284; A9270; G0480; 80320; 81001; 87086

== ENCOUNTER 2023-11-29 10:16 | Outpatient (CLI) | payer MEDICARE, OTHER | END 2023-11-29 23:59 | disposition critical access hospital (66) | LOC: EMS 10:16 | DX: R41.82 Altered mental status, unspecified (principal); R11.10 Vomiting, unspecified; R14.0 Abdominal distension (gaseous); R50.9 Fever, unspecified | CPT/HCPCS: A0425; A0427 ==

== ENCOUNTER 2023-11-29 10:47 | Inpatient (IN) | payer MEDICARE, OTHER ==
--- NOTE | 2023-11-29 11:03 | ED Physician Documentation ---
PD HPI ALTERED MENTAL STATUS - Stated complaint Stated Complaint: ALOC - History obtained from History obtained from: Patient (she is not speaking, responding verbally), EMS - History of Present Illness Timing - details: Other (unknown onset pattern. lives alone but family member visiting and found her this morning awake but dazed and confused. Minimally verbal with somewhat blank stare. family member says pt was normally interactive yesterday.) Quality / character: Less responsive, Confused (awake but not verbal/interacting. Minimally and sluggishly following commands or simple word answers to questions.) Associated symptoms: Fever (today). No: Headache, Stiff neck, Cough Contributing factors: Recent med change. No: Diabetic, Recent illness (noted to have fever today.) Basline status: Alert and oriented X 3 (gets confused and anxious at evening/night the recent past. Seen in ER recently for that. Was alert and conversant by records.), Ambulatory Treatment COMMUNICATION COORDINATOR: Accucheck Similar symptoms before: Has not had sx before Recently seen: Clinic (had UTI and was Rx Cefdinir on Nov 12, then Rx Bactrim on . Cultures show sensitive orgainisms to both meds. Pt reportedly taking the abx as script bottle was mostly empty.), Emergency Dept (Seen 5 days ago on the with some confusion. Had a sodium 125. Improved with some IV fluids. Also started Seroquel 25 mg at night for anxiety.) Review of Systems Unable to obtain: AMS PD PAST MEDICAL HISTORY - Past Medical History Cardiovascular: Hypertension, High cholesterol Endocrine/Autoimmune: Type 2 diabetes - Present Medications Home Medications: Ambulatory Orders Medication Instructions Recorded Confirmed Gabapentin [Neurontin] 300 mg PO TID 11/24/23 11/29/23 Lisinopril [Zestril] 40 mg PO DAILY 11/24/23 11/29/23 QUEtiapine [SEROquel] 25 mg PO QPM #30 tablet 11/24/23 11/29/23 Simvastatin [Zocor] 40 mg PO DAILY 11/24/23 11/29/23 hydroCHLOROthiazide [Hydrodiuril] 25 mg PO DAILY 11/24/23 11/29/23 metFORMIN [Glucophage] 750 mg PO DAILY 11/24/23 11/29/23 Celecoxib 100 mg PO DAILY 11/29/23 11/29/23 Estradiol [Estrace] 0.5 mg PO DAILY 11/29/23 11/29/23 - Allergies Allergies/Adverse Reactions: Allergies Allergy/AdvReac Type Severity Reaction Status Date / Time Penicillins Allergy Unknown Verified 11/29/23 10:51 PD ED PE NORMAL - Vitals Vital signs reviewed: Yes - General General: No acute distress, Well developed/nourished, Other (does not appear in pain) - HEENT HEENT: Atraumatic, Pharynx benign - Neck Neck: Supple, no meningeal sign (looking around side to side on her own, attentive to activity around her but minimally and sluggishly speaking or following commands such as hand grasp. ), No adenopathy - Cardiac Cardiac: RRR, No murmur - Respiratory Respiratory: No respiratory distress, Clear bilaterally - Abdomen Abdomen: Soft, Non tender - Derm Derm: Normal color, Warm and dry Results - Vitals Vitals: Oxygen O2 Source Room air - Labs Labs: Microbiology 11/29/23 11:49 Blood Culture - Preliminary Blood - Right Arm NO GROWTH AFTER 1 DAY 11/29/23 11:19 Blood Culture - Preliminary Blood - Right Arm NO GROWTH AFTER 1 DAY Laboratory Tests 11/29/23 11/29/23 11/29/23 11:19 11:19 11:19 WBC 9.4 RBC 3.73 L Hgb 11.4 L Hct 33.2 L MCV 89.0 MCH 30.6 MCHC 34.3 RDW 11.3 L Plt Count 286 MPV 9.2 Neut # (Auto) 8.0 H Lymph # (Auto) 0.7 L [place] # (Auto) 0.7 Eos # (Auto) 0.0 Baso # (Auto) 0.0 Absolute Nucleated RBC 0.00 Nucleated RBC % 0.0 Sodium 118 L* Potassium 4.2 Chloride 87 L Carbon Dioxide 19 L Anion Gap 12.0 BUN 13 Creatinine 1.2 Estimated GFR (MDRD) 43 L Glucose 128 H Lactic Acid 1.2 Calcium 8.9 Magnesium 1.6 L Total Bilirubin 0.8 AST 24 ALT 20 Alkaline Phosphatase 49 Total Protein 6.5 Albumin 4.2 Globulin 2.3 Albumin/Globulin Ratio 1.8 Lipase 38 Urine Color Urine Clarity Urine pH Ur Specific [place] Urine Protein Urine Glucose (UA) Urine Ketones Urine Occult Blood Urine Nitrite Urine Bilirubin Urine Urobilinogen Ur Leukocyte Esterase Ur Microscopic Review Urine Culture Comments Nasal Adenovirus (PCR) Nasal B. parapertussis DNA (PCR) Nasal Coronavir 229E PCR Nasal Coronavir HKU1 PCR Nasal Coronavir NL63 PCR Nasal Coronavir OC43 PCR Nasal Enterovir/Rhinovir PCR Nasal Influenza B PCR Nasal Influenza A PCR Nasal Parainfluen 1 PCR Nasal Parainfluen 2 PCR Nasal Parainfluen 3 PCR Nasal Parainfluen 4 PCR Nasal RSV (PCR) Nasal B.pertussis DNA PCR Nasal C.pneumoniae (PCR) Joss Human Metapneumo PCR Nasal M.pneumoniae (PCR) Nasal SARS-CoV-2 (PCR) Salicylates < 1.5 Urine Opiates Screen Ur Buprenorphine Scrn Ur Oxycodone Screen Urine Methadone Screen Acetaminophen 0.1 Ur Barbiturates Screen Ur Tricyclics Screen Ur Phencyclidine Scrn Ur Amphetamine Screen U Methamphetamines Scrn U Benzodiazepines Scrn Urine Cocaine Screen U Cannabinoids Screen Ur Drug Screen Comment Ethyl Alcohol < 10.0 11/29/23 11/29/23 11:44 11:50 WBC RBC Hgb Hct MCV MCH MCHC RDW Plt Count MPV Neut # (Auto) Lymph # (Auto) [place] # (Auto) Eos # (Auto) Baso # (Auto) Absolute Nucleated RBC Nucleated RBC % Sodium Potassium Chloride Carbon Dioxide Anion Gap BUN Creatinine Estimated GFR (MDRD) Glucose Lactic Acid Calcium Magnesium Total Bilirubin AST ALT Alkaline Phosphatase Total Protein Albumin Globulin Albumin/Globulin Ratio Lipase Urine Color YELLOW Urine Clarity CLEAR Urine pH 7.0 Ur Specific [place] 1.010 Urine Protein NEGATIVE Urine Glucose (UA) NEGATIVE Urine Ketones 40 H Urine Occult Blood NEGATIVE Urine Nitrite NEGATIVE Urine Bilirubin NEGATIVE Urine Urobilinogen 0.2 (NORMAL) Ur Leukocyte Esterase NEGATIVE Ur Microscopic Review NOT INDICATED Urine Culture Comments NOT INDICATED Nasal Adenovirus (PCR) NOT DETECTED Nasal B. parapertussis DNA (PCR) NOT DETECTED Nasal Coronavir 229E PCR NOT DETECTED Nasal Coronavir HKU1 PCR NOT DETECTED Nasal Coronavir NL63 PCR NOT DETECTED Nasal Coronavir OC43 PCR NOT DETECTED Nasal Enterovir/Rhinovir PCR NOT DETECTED Nasal Influenza B PCR NOT DETECTED Nasal Influenza A PCR NOT DETECTED Nasal Parainfluen 1 PCR NOT DETECTED Nasal Parainfluen 2 PCR NOT DETECTED Nasal Parainfluen 3 PCR NOT DETECTED Nasal Parainfluen 4 PCR NOT DETECTED Nasal RSV (PCR) NOT DETECTED Nasal B.pertussis DNA PCR NOT DETECTED Nasal C.pneumoniae (PCR) NOT DETECTED Joss Human Metapneumo PCR NOT DETECTED Nasal M.pneumoniae (PCR) NOT DETECTED Nasal SARS-CoV-2 (PCR) NOT DETECTED Salicylates Urine Opiates Screen NEGATIVE Ur Buprenorphine Scrn NEGATIVE Ur Oxycodone Screen NEGATIVE Urine Methadone Screen NEGATIVE Acetaminophen Ur Barbiturates Screen NEGATIVE Ur Tricyclics Screen NEGATIVE Ur Phencyclidine Scrn NEGATIVE Ur Amphetamine Screen NEGATIVE U Methamphetamines Scrn NEGATIVE U Benzodiazepines Scrn NEGATIVE Urine Cocaine Screen NEGATIVE U Cannabinoids Screen NEGATIVE Ur Drug Screen Comment CUTOFF CONC BELOW: Ethyl Alcohol PD Medical Decision Making - ED course Complexity details: reviewed results (normal white count and lactate. Had fever on presentation. However does not appear meningitis and is not lethargic per se, but sluggish to answer, and blank stare. Appears more toxic or metabolic than infectious. ), considered differential (patient with blank stare type confusion and AMS. Does not seem lethargic per se. Had fever here to 101. She is restless on the cart. Consider sepsis, intoxication, med side effect. Combo of symptoms could be c/w serotonin syndrome though she is not on direct SSRIs, and new med was Seroquel.), d/w patient, d/w domestic travel consultant ([facility]) Reviewed Lab Results: Her sodium is quite low at 118. She has altered mental status. I opt for hypertonic saine single dose and reassess at an interval. Tried to get head CT but pt was too restless/movement. I did not want to sedate her though in order to be able to follow LOC and mental status. d ED course: still minimal orientation and interaction. no neck stiffness and she doesanswer no when I ask about headache. I looked up her current meds (was Cefdinir for UTI 11/12/23 and then changed/Rx by PCP to Bactrim). These are not on list of meds to cause serotonin syncrome per UpToDate. Consider just some confusion if she took the seroquel at extra doses by accident. No neck stiffness, tenderness anor headache. Even though fever, I did not see meningitis as likely so consideed but did not do LP. Wanting to get head CT but she was still restless dso not holding still well. I would rather keep her attentive/ non sedated, so as to follow neuro exam. - Critical Care Time(min): 50 Time Includes: Direct patient care, Review records, Document care, Coordinate care, Medical consult Data interpretation: Labs, Pulse ox Departure - Departure Disposition: 66 [facility] DC/Xfer Clinical Impression: Acute hyponatremia Altered mental status Qualifiers: Coma depth: [place] coma 13-15 Coma timing: at hospital admission Qualified Code(s): R40.2413 - Fever Qualifiers: Fever type: due to other condition Qualified Code(s): R50.81 - Fever presenting with conditions classified elsewhere Condition: Stable Record reviewed to determine appropriate education?: Yes Discharge Date/Time: 11/29/23 13:48
[2023-11-29] MEDS: LORazepam 2 MG/ML VIAL IVP STA (11:10)
[2023-11-29] MEDS: KETOROLAC 15 MG/ML VIAL IVP STA (11:10)
[2023-11-29 11:22] LABS: BASOPHILS % (AUTO) 0.1 %; EOSINOPHILS % (AUTO) 0.1 %; HCT - HEMATOCRIT 33.2 % (37.0-47.0); HGB - HEMOGLOBIN 11.4 g/dL (12.0-16.0); LYMPHOCYTES # (AUTO) 0.7 10^3/uL (1.5-3.5); LYMPHOCYTES % (AUTO) 7.1 %; MEAN CORPUSCULAR HEMOGLOBIN 30.6 pg (27.0-31.0); MEAN CORPUSCULAR HGB CONC 34.3 g/dL (32.0-36.0); MEAN PLATELET VOLUME 9.2 fL (7.9-10.8); MONOCYTES # (AUTO) 0.7 10^3/uL (0.0-1.0); MONOCYTES % (AUTO) 6.9 %; NEUTROPHILS % (AUTO) 85.5 %; PLT - PLATELET COUNT 286 10^3/uL (130-450); RED BLOOD COUNT 3.73 10^6/uL (4.20-5.40); RED CELL DISTRIBUTION WIDTH 11.3 % (12.0-15.0); WHITE BLOOD COUNT 9.4 x10^3/uL (4.8-10.8)
[2023-11-29] MEDS: SODIUM CHLORIDE 0.9% 1,000 ML IV STA (11:24)
--- NOTE | 2023-11-29 11:37 | XRAY Report ---
PROCEDURE: Chest 1V INDICATIONS: fever, AMS TECHNIQUE: One view of the chest was acquired. COMPARISON: 02/24/2022. FINDINGS: Surgical changes and devices: None. Lungs and pleura: No pleural effusions or pneumothorax. Lungs are clear. Mediastinum: Mediastinal contours appear normal. Heart size is normal. Bones and chest wall: No suspicious bony lesions. Overlying soft tissues appear unremarkable. IMPRESSION: No acute cardiopulmonary process. Reviewed by: Isabelle Hernandez MD, PhD on 11/29/2023 11:36 AM [facility] Approved by: Isabelle Hernandez MD, PhD on 11/29/2023 11:36 AM [facility] Station ID: [id number]
[2023-11-29 11:41] LABS: ACETAMINOPHEN 0.1 ug/mL; ETOH - ETHANOL < 10.0 mg/dL; LIPASE 38 U/L (11-82); MAGNESIUM 1.6 mg/dL (1.7-2.3)
[2023-11-29 11:44] LABS: ALBUMIN 4.2 g/dL (3.2-5.5); ALBUMIN/GLOBULIN RATIO 1.8 (1.0-2.2); ALKALINE PHOSPHATASE 49 IU/L (42-121); ALT ALANINE AMINOTRANSFERASE 20 IU/L (10-60); AST ASPARTATE AMINOTRANSFERASE 24 IU/L (10-42); BILIRUBIN,TOTAL 0.8 mg/dL (0.2-1.0); BUN - BLOOD UREA NITROGEN 13 mg/dL (6-20); CALCIUM 8.9 mg/dL (8.5-10.3); CARBON DIOXIDE - CO2 19 mmol/L (21-32); CHLORIDE 87 mmol/L (101-111); CREATININE 1.2 mg/dL (0.6-1.3); GFR - MDRD 43 (>89); GLUCOSE 128 mg/dL (74-104); POTASSIUM 4.2 mmol/L (3.5-4.5); SALICYLATE < 1.5 mg/dL; SODIUM 118 mmol/L (135-145); TOTAL PROTEIN 6.5 g/dL (6.4-8.9)
[2023-11-29 11:59] LABS: BILIRUBIN,URINE NEGATIVE (NEGATIVE); GLUCOSE, URINE (UA) NEGATIVE (NEGATIVE); KETONES,URINE (UA) 40 mg/dL (NEGATIVE); LEUKOCYTE ESTERASE, URINE NEGATIVE (NEGATIVE); NITRITE,URINE NEGATIVE (NEGATIVE); OCCULT BLOOD,URINE NEGATIVE (NEGATIVE); PROTEIN,URINE NEGATIVE (NEGATIVE); UROBILINOGEN,URINE 0.2 (NORMAL) E.U./dL (NORMAL)
[2023-11-29 12:02] LABS: CLARITY,URINE CLEAR (CLEAR)
[2023-11-29] MEDS: SODIUM CHLORIDE 3% HYPERTONIC 100 ML IV STA (12:02)
[2023-11-29] MEDS: ACETAMINOPHEN 1,000 MG/100 ML 1,000 MG/100 ML BAG IV ONE (12:02)
[2023-11-29 12:12] LABS: AMPHETAMINE SCREEN,URINE NEGATIVE (NEGATIVE); BARBITURATE SCREEN,UR NEGATIVE (NEGATIVE); BENZODIAZEPINES SCREEN, URINE NEGATIVE (NEGATIVE); BUPRENORPHINE SCREEN, URINE NEGATIVE (NEGATIVE); COCAINE SCREEN URINE NEGATIVE (NEGATIVE); METHADONE SCREEN, URINE NEGATIVE (NEGATIVE); METHAMPHETAMINES SCREEN, URINE NEGATIVE (NEGATIVE); OPIATE SCREEN, URINE NEGATIVE (NEGATIVE); OXYCODONE SCREEN, URINE NEGATIVE (NEGATIVE); THC CANNABINOID SCREEN, URINE NEGATIVE (NEGATIVE); TRICYCLIC ANTIDEPRESSANT,URINE NEGATIVE (NEGATIVE)
[2023-11-29 12:49] LABS: B. PARAPERTUSSIS- RESP PCR PAN NOT DETECTED; B. PERTUSSIS- RESP PCR PANEL NOT DETECTED; C. PNEUMONIAE- RESP PCR PANEL NOT DETECTED; CORONAVIRUS 229E-RESP PCR NOT DETECTED; CORONAVIRUS HKU1-RESP PCR NOT DETECTED; CORONAVIRUS NL63-RESP PCR NOT DETECTED; CORONAVIRUS OC43-RESP PCR NOT DETECTED; HUMAN METAPNEUMOVIRUS NOT DETECTED; INFLUENZA A- RESP PCR PANEL NOT DETECTED; INFLUENZA B - RESP PCR PANEL NOT DETECTED; M. PNEUMONIAE- RESP PCR PANEL NOT DETECTED; PARAINFLUENZA VIRUS 1 NOT DETECTED; PARAINFLUENZA VIRUS 2 NOT DETECTED; PARAINFLUENZA VIRUS 3 NOT DETECTED; PARAINFLUENZA VIRUS 4 NOT DETECTED; RHINOVIRUS/ENTEROVIRUS NOT DETECTED; RSV- RESP PCR PANEL NOT DETECTED; SARS-CoV-2 -RESP PCR PANEL NOT DETECTED
[2023-11-29] MEDS ORDERED: oxyCODONE 5 MG TABLET PO PRN (13:05)
[2023-11-29] MEDS ORDERED: ONDANSETRON 4 MG/2 ML VIAL IVP PRN (13:05)
[2023-11-29] MEDS ORDERED: ONDANSETRON ODT 4 MG TABLET TL PRN (13:05)
[2023-11-29] MEDS ORDERED: SODIUM CHLORIDE FLUSH 0.9% 10 ML SYRINGE IVP PRN (13:05)
[2023-11-29] MEDS: CEFEPIME 2 GM in SODIUM CHLORIDE 0.9% MINIBAG 100 ML IV STA (13:35)
--- NOTE | 2023-11-29 13:54 | PHARMACY PROGRESS NOTE ---
- Best Possible Medication History Admit Date and Time: 11/29/23 6434 Processed by: Nursing Medications reviewed in ED?: Yes As the person ultimately responsible for medication therapy, providers are able to order a medication from an existing home medication list in [facility] via the "Reconcile Routine" prior to Confirmation of that medication by business support professional. Such practice is discouraged except when the physician, in their clinical judgment, deems that a medical need exists for a medication without regard to previous use.
--- NOTE | 2023-11-29 14:10 | HISTORY & PHYSICAL EXAMINATION ---
Chief Complaint - Chief Complaint Chief Complaint: altered mental status History of Present Illness - Admitted From Admitted From:: home - History Obtained From Records Reviewed: yes History obtained from: chart and family at bedside Exam Limitations: altered mental status - History of Present Illness HPI Comment/Other: Unable to obtain from patient due to altered mental status, so info obtained from sister and daughter at bedside. Patient lives alone in a condo and recently insisted to her sister that she wants to move into a senior facility as she is lonely and has difficulty with the long vargas (patient lived in [place] and [place] for most of her life and has been here 5y). Family states patient has been progressively worsening with confusion over the past 4-5 mo and there was concern for dementia. She was to get a neuro eval in [place] last month but delayed this appointment. She was in her usual state of health until 11/12 when she went to a walk-in clinic in [place], [place] for confusion and was dx with UTI. She was given nitrofurantoin and then cefdinir (urine cx at that time grew Klebsiella). She only took these new ones for 2-3d then stopped because they made her sick, and the doctor told her to finish the first antibiotic and get rechecked. She was to get rechecked this week but delayed this appointment. She seemed to be back to her normal mental status until the past several days when she became more acutely agitated, had not been sleeping (usually sleeps ok), and was more confused. She was in ED for this 11/24. Na 125 at that time, was given IVF and mental status improved, MRI brain was negative, so she was sent home with Rx for Seroquel for her agitation in setting of presumed dementia. No improvement was noted on the Seroquel and in fact she seemed a bit worse with her agitation. Family denies that patient was drinking excessive amounts of water, but she is on HCTZ. The confusion continued and last night she was more agitated and confused, had fever to 103, so was brought to the ED. In ED Na 118, UA + ketones, ASA and Tylenol levels neg. She was given 1L NS and 100 mL 3% saline. She was noted to be febrile, cefepime was started. Patient's niece is ill with pneumonia and sepsis and is currently in the hospital. Sister and daughter at bedside agree patient should be DNR. 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 nonsmoker, no hx of alcohol abuse - Substance History Use: Uses substance without health or social issues: NONE Abuse: Recurrent use of substance despite neg consequences: NONE Dependence: Experiences withdrawal or developed tolerances: NONE - POLST Patient has POLST: No POLST Status: DNR Meds/Allgy - Home Medications Home Medications: Ambulatory Orders Medication Instructions Recorded Confirmed Gabapentin [Neurontin] 300 mg PO TID 11/24/23 11/29/23 Lisinopril [Zestril] 40 mg PO DAILY 11/24/23 11/29/23 QUEtiapine [SEROquel] 25 mg PO QPM #30 tablet 11/24/23 11/29/23 Simvastatin [Zocor] 40 mg PO DAILY 11/24/23 11/29/23 hydroCHLOROthiazide [Hydrodiuril] 25 mg PO DAILY 11/24/23 11/29/23 metFORMIN [Glucophage] 750 mg PO DAILY 11/24/23 11/29/23 Celecoxib 100 mg PO DAILY 11/29/23 11/29/23 Estradiol [Estrace] 0.5 mg PO DAILY 11/29/23 11/29/23 - Allergies Allergies/Adverse Reactions: Allergies Allergy/AdvReac Type Severity Reaction Status Date / Time Penicillins Allergy Unknown Verified 11/29/23 10:51 Review of Systems - Constitutional Constitutional: reports: Fever, Chills - Neurological Neurological: reports: Memory problems, Other (worsening episodes of confusion over the past 4-5 months) - All Other Systems All Other Systems: reports: Other (unable to obtain due to altered mental status) Prior Level of Functionality: lives at home alone. no use of DME. still doing adls in spite of memory loss Exam - Vital Signs Reviewed Vital Signs: Yes Vital Signs: Vital Signs x48h Temp Pulse Resp BP 11/29/23 10:51 101.1 C H 84 16 120/107 H - Physical Exam General Appearance: positive: No acute distress, Other (Restless) Eyes Bilateral: positive: Normal inspection, PERRL, No scleral icterus ENT: positive: No signs of dehydration Respiratory: positive: Chest non-tender, No respiratory distress, Breath sounds nml Cardiovascular: positive: Regular rate & rhythm, No murmur Peripheral Pulses: positive: 2+ Abdomen: positive: Non-tender, No organomegaly, Nml bowel sounds, No distention Skin: positive: Color nml, No rash, Warm, Dry Extremities: positive: Nml appearance, No pedal edema Neurologic/Psychiatric: positive: Slurred/abnml speech, Other (No focal deficits noted on exam but pt uncooperative with exam due to altered mental status. Both elbows noted to be flexed, does not want to keep arms straight. Keeps eyes closed, does open them and slow to respond to commands. When I ask her questions she occasionally nods yes/no appropriately.) Comments/Other: At times repeats words "I want, I want, I want" other times does not answer. Frequently moves head side to side and moving extremities in restless fashion Conclusion/Plan - Problem List (1) Hyponatremia Conclusion/Plan: Suspect multifactorial due to use of diuretics and Seroquel. Received 100 mL of 3% saline and 1L of NS. Na 118 on admit, improved to 122 in 4h post this treatment. Glucose not significantly elevated. Cause could be hypovolemic vs euvolemic/SIADH. Plan: Do NOT restart Seroquel Hold HCTZ As Na has increased by 4 points, does not need more hypertonic saline. Consider IVF however not significantly hypovolemic on exam If takes PO, recommend milk or more protein to increase solute Check sodium Q6h Consider checking serum osmolality and urine sodium in AM if it is felt pt is euvolemic (2) Altered mental status Conclusion/Plan: Likely multifactorial due to possible mild serotonin syndrome and hyponatremia in the setting of underlying cognitive impairment. Urine tox negative. Tylenol and salicylate levels unrevealing for cause. No h/o drug or EtOH use. Already improving and saying more words than on admission. On admission was saying an occasional word and nodding y/n appropriately to some questions, following some commands but often nonverbal and restless. Plan: monitor mental status Treat Na as above If becomes agitated, use benzos Hold home gabapentin as it can have anticholinergic effects NO ANTIPSYCHOTICS Qualifiers: Coma depth: Noni coma 13-15 Coma timing: at hospital admission Qualified Code(s): R40.2413 - Cascade coma scale score 13-15, at hospital admission (3) Fever Conclusion/Plan: Received dose of cefepime in ED for presumed infection. UA, respiratory panel, CXR unremarkable. S/p recent course of nitrofurantoin for UTI. WBC normal. Suspect fever is related to drug reaction/possible mild serotonin syndrome. Differential dx includes SUPERVISOR PIPELINE MAINTENANCE infection, bloodstream infection (both unlikely). Plan: Anti-pyretics prn, cooling measures (ice packs, etc) if needed If fever persists and develops leukocytosis, consider further workup Follow up blood cx results Hold off on further antibiotics for now Qualifiers: Fever type: due to other condition Qualified Code(s): R50.81 - Fever presenting with conditions classified elsewhere (4) HTN (hypertension) Conclusion/Plan: BP has been elevated, suspect due to possible mild serotonin syndrome. Plan: Hold HCTZ due to hyponatremia Restart home lisinopril Qualifiers: Hypertension type: primary hypertension Qualified Code(s): I10 - Essential (primary) hypertension (5) Diabetes type 2, controlled Conclusion/Plan: Chronic. Stable. A1c in 05/2023 was 6.3. On metformin at home. Plan: hold metformin while in hospital Consider insulin protocol if sugars start to rise (right now not taking much PO) Qualifiers: Diabetes mellitus jail insulin use: without manager intermediate use Diabetes mellitus complication status: with unspecified complications Qualified Code(s): E11.8 - Type 2 diabetes mellitus with unspecified complications (6) Chronic pain Conclusion/Plan: Has pain in her back and hips which is chronic and has lately limited her desire to get out of the home. Plan: hold home gabapentin and celebrex Tylenol prn for pain for now Qualifiers: Chronic pain type: chronic pain syndrome Qualified Code(s): G89.4 - Chronic pain syndrome - Lab Results Lab results reviewed: Yes Fish Bones: 11/29/23 11:19 11/29/23 15:44 Other Lab Results: Lactate 1.2, Mg 1.6, UA + ketones. Negative Utox, respiratory panel, ethanol, aspirin, Tylenol levels. - Diagnostic Imaging Results Diagnostic Imaging Results: positive: Final report reviewed, Critical result (Sodium levels reviewed) Diagnostic Imaging Results Comments: CXR negative for acute findings Core Measures - Anticipated LOS I expect patient to be DC'd or transferred within 96 hours.: Yes - DVT/VTE - Prophylaxis VTE/DVT Prophylaxis med ordered at admit?: Yes
[2023-11-29] MEDS: SODIUM CHLORIDE FLUSH 0.9% 10 ML SYRINGE IVP SCH (16:34)
[2023-11-30] MEDS: lisinopriL 20 MG TABLET PO SCH (09:25)
[2023-11-30 10:42] LABS: CALCIUM 8.9 mg/dL (8.5-10.3); CREATININE 1.1 mg/dL (0.6-1.3); POTASSIUM 3.8 mmol/L (3.5-4.5)
[2023-11-30] MEDS: MAGNESIUM SULFATE 2 GRAM 2 GM/50 ML BAG IV ONE (11:15)
[2023-11-30 13:08] LABS: BASOPHILS % (AUTO) 0.4 %; EOSINOPHILS # (AUTO) 0.1 10^3/uL (0.0-0.7); EOSINOPHILS % (AUTO) 1.8 %; HCT - HEMATOCRIT 34.1 % (37.0-47.0); HGB - HEMOGLOBIN 11.4 g/dL (12.0-16.0); LYMPHOCYTES # (AUTO) 0.7 10^3/uL (1.5-3.5); LYMPHOCYTES % (AUTO) 11.7 %; MEAN CORPUSCULAR HEMOGLOBIN 29.8 pg (27.0-31.0); MEAN CORPUSCULAR HGB CONC 33.4 g/dL (32.0-36.0); MEAN PLATELET VOLUME 8.9 fL (7.9-10.8); MONOCYTES # (AUTO) 0.8 10^3/uL (0.0-1.0); MONOCYTES % (AUTO) 14.6 %; NEUTROPHILS % (AUTO) 71.1 %; PLT - PLATELET COUNT 272 10^3/uL (130-450); RED BLOOD COUNT 3.83 10^6/uL (4.20-5.40); RED CELL DISTRIBUTION WIDTH 11.8 % (12.0-15.0); WHITE BLOOD COUNT 5.6 x10^3/uL (4.8-10.8)
[2023-11-30 13:22] LABS: ESTIMATED AVERAGE GLUCOSE 148 mg/dL (70-100); HEMOGLOBIN A1c% 6.8 % (4.27-6.07)
[2023-11-30] MEDS: SODIUM CHLORIDE 1 GM TABLET PO SCH (14:45)
--- NOTE | 2023-11-30 16:03 | PROVIDER PROGRESS NOTE ---
Assessment/Plan - Problem List (1) Hyponatremia Assessment/Plan: Suspect multifactorial due to use of diuretics, use of Seroquel and today I learned she drank about 3L of water daily. She received 100 mL of 3% saline and 1L of NS in ER. Na 118 on admit, improved to 122 in 4h post this treatment. Glucose not significantly elevated. Plan: Will NOT restart Seroquel Hold HCTZ Goal is to increase Na by 6-8 mEq daily. Today she refused to have her iv restarted, so we will start her on salt tablets Today I discussed the plan to decrease free water intake and to increase fluids with solutes, like broths, juices, milk Follow serum sodium Q8h. She was refusing blood draws, until sister and daughter were oin her room Will check her urine sodium, working up SIADH Will not order serum osmolality since it is a send out lab that takes ~3 days to get results I explained the plan to pt and updated one (of her 2) daughters and her sister from [place], at bedside today (2) Altered mental status Conclusion/Plan: She has poor memory, is paranoid, and is jumping from topic to topic Likely multifactorial due to possible mild serotonin syndrome and hyponatremia in the setting of possible underlying cognitive impairment. She is to have a Neuro eval in December, she stated. Urine tox screen was negative. Tylenol and salicylate levels unrevealing for cause. No h/o drug or EtOH use. She is improving saying more words than on admission. On admission was saying an occasional word and nodding y/n appropriately to some questions, following some commands but often nonverbal and restless. Plan: Monitor mental status Treat Na as above If becomes agitated, use benzos Will start to resume home gabapentin Will not start Seroquel If no head CT was done, will obtain head CT. She may need Benzos if she becomes agitated during that. Will also check B12, TSH and vit D levels (3) Insomnia Daughter reported she had not slept in 1 week. Plan: Benzos prn Will await reconciled med list for any other meds to resume (4) Diabetes type 2, controlled Conclusion/Plan: Chronic. Stable. A1c in 05/2023 was 6.3 and is 6.8 here. She was on metformin at home, but today I learned she was hardly eating anything for several days Plan: Hold metformin yet A Reg diet was ordered since she is eating very little Will order hypoglycemia protocol, POC fingerstick checks, and ss Insulin, but right now not taking much PO Qualifiers: Diabetes mellitus terminal operations supervisor insulin use: without terminal operations supervisor use Diabetes mellitus complication status: with unspecified complications Qualified Code(s): E11.8 - Type 2 diabetes mellitus with unspecified complications (5) HTN (hypertension) Conclusion/Plan: BP has been elevated, suspect due to possible mild serotonin syndrome on top of agitation/confusion Plan: Hold HCTZ due to hyponatremia Cont the restarted home lisinopril I explained to pt, sister and daughter at bedside, why some meds have not been resumed yet Qualifiers: Hypertension type: primary hypertension Qualified Code(s): I10 - Essential (primary) hypertension (6) Chronic pain Conclusion/Plan: Has pain in her back and hips which is chronic and has lately limited her desire to get out of the home. Plan: Will resume home gabapentin and celebrex Tylenol prn for pain also Qualifiers: Chronic pain type: chronic pain syndrome Qualified Code(s): G89.4 - Chronic pain syndrome (7) Fever Conclusion/Plan: RESOLVED Received dose of cefepime in ED for presumed infection. UA, respiratory panel, CXR unremarkable. S/p recent course of nitrofurantoin for UTI. WBC normal. Suspect fever was related to drug reaction/possible mild serotonin syndrome. Differential dx includes DEFENSIVE LINE COACH infection, bloodstream infection (both unlikely). Plan: Anti-pyretics prn, cooling measures (ice packs, etc) if needed If fever recurs and she develops leukocytosis, consider further workup for infectious source Follow up blood cx results Remain off further antibiotics for now - Current Meds Current Meds: Current Medications Generic Name Dose Route Start Last Admin Trade Name Freq PRN Reason Stop Dose Admin Lisinopril 40 mg 11/30/23 09:00 11/30/23 09:25 Lisinopril 20 Mg Tablet PO 40 mg DAILY TALIB Administration Sodium Chloride 10 ml 11/29/23 17:00 11/30/23 09:25 Sodium Chloride Flush 0.9% 10 Ml Syringe IVP 10 ml 0100,0900,1700 TALIB Administration Sodium Chloride 1 gm 11/30/23 14:05 11/30/23 14:45 Sodium Chloride 1 Gm Tablet PO 1 gm DAILY TALIB Administration - Lab Result Fish Bone Diagrams: 12/01/23 05:23 12/01/23 05:23 - Additional Planning My Orders: My Active Orders 11/30/23 10:23 Blood Glucose POC [RC] ACHS Initiate Hypoglycemia Protocol [RC] .protocol 11/30/23 14:05 Sodium Chloride [Salt Tab] 1 gm PO DAILY 11/30/23 21:00 QUEtiapine [SEROquel] 25 mg PO QPM 11/30/23 22:00 Gabapentin [Neurontin] 300 mg PO TID 12/01/23 05:00 BMP - BASIC METABOLIC PANEL [CHEM] DAILYLAB CBC - COMP BLD CT W/AUTO DIFF [HEME] DAILYLAB MAGNESIUM [CHEM] DAILYLAB 12/01/23 09:00 Celecoxib [CeleBREX] 100 mg PO DAILY 12/02/23 05:00 MAGNESIUM [CHEM] DAILYLAB Subjective - Subjective Patient Reports: Other (Paranoid, flight of ideas, poor historian, refusing to eat or drink) Nursing Reports: Confused, Other (Paranoid and refusing things, eating very little) Objective Vital Signs: Vital Signs - 24 hr 11/30/23 11/30/23 01:39 08:12 Temperature 36.6 C 36.7 C Heart Rate [ 85 72 Brachial] Respiratory 20 16 Rate Blood Pressure 142/65 H 153/66 H [Right Brachial artery] O2 Saturation 99 96 Oxygen O2 Source Room air I&O (Last 24 Hrs): Intake and Output Totals x24h 11/28/23 11/29/23 11/30/23 23:59 23:59 23:59 Intake Total 1300 120 Output Total 300 Balance 1300 -180 General: Alert HEENT: Mucous membr. moist/pink, Other (Disheveled) Neck: Supple, No JVD Neuro: Alert, Disoriented, Non Focal, Other (Flight of ideas. Will not answer some questions, staring blankly.) Cardiovascular: Regular rate Respiratory: No respiratory distress Abdomen: No tenderness Extremities: No edema - Results Results: Laboratory Results WBC 5.6 x10^3/uL (4.8-10.8) 11/30/23 12:57 RBC 3.83 10^6/uL (4.20-5.40) L 11/30/23 12:57 Hgb 11.4 g/dL (12.0-16.0) L 11/30/23 12:57 Hct 34.1 % (37.0-47.0) L 11/30/23 12:57 MCV 89.0 fL (81.0-99.0) 11/30/23 12:57 MCH 29.8 pg (27.0-31.0) 11/30/23 12:57 MCHC 33.4 g/dL (32.0-36.0) 11/30/23 12:57 RDW 11.8 % (12.0-15.0) L 11/30/23 12:57 Plt Count 272 10^3/uL (130-450) 11/30/23 12:57 MPV 8.9 fL (7.9-10.8) 11/30/23 12:57 Neut # (Auto) 4.0 10^3/uL (1.5-6.6) 11/30/23 12:57 Lymph # (Auto) 0.7 10^3/uL (1.5-3.5) L 11/30/23 12:57 [place] # (Auto) 0.8 10^3/uL (0.0-1.0) 11/30/23 12:57 Eos # (Auto) 0.1 10^3/uL (0.0-0.7) 11/30/23 12:57 Baso # (Auto) 0.0 10^3/uL (0.0-0.1) 11/30/23 12:57 Absolute Nucleated RBC 0.00 x10^3/uL 11/30/23 12:57 Nucleated RBC % 0.0 /100WBC 11/30/23 12:57 Sodium 127 mmol/L (135-145) L 11/30/23 12:57 Potassium 3.8 mmol/L (3.5-4.5) 11/30/23 07:44 Chloride 95 mmol/L (101-111) L 11/30/23 07:44 Carbon Dioxide 20 mmol/L (21-32) L 11/30/23 07:44 Anion Gap 11.0 (6-13) 11/30/23 07:44 BUN 13 mg/dL (6-20) 11/30/23 07:44 Creatinine 1.1 mg/dL (0.6-1.3) 11/30/23 07:44 Estimated GFR (MDRD) 48 (>89) L 11/30/23 07:44 Glucose 116 mg/dL (74-104) H 11/30/23 07:44 POC Whole Bld Glucose 163 mg/dL (70 - 100) H 11/30/23 11:27 Estimat Average Glucose 148 mg/dL (70-100) H 11/30/23 07:44 Hemoglobin A1c % 6.8 % (4.27-6.07) H 11/30/23 07:44 Lactic Acid 1.2 mmol/L (0.5-2.2) 11/29/23 11:19 Calcium 8.9 mg/dL (8.5-10.3) 11/30/23 07:44 Magnesium 1.6 mg/dL (1.7-2.3) L 11/29/23 11:19 Total Bilirubin 0.8 mg/dL (0.2-1.0) 11/29/23 11:19 AST 24 IU/L (10-42) 11/29/23 11:19 ALT 20 IU/L (10-60) 11/29/23 11:19 Alkaline Phosphatase 49 IU/L (42-121) 11/29/23 11:19 Total Protein 6.5 g/dL (6.4-8.9) 11/29/23 11:19 Albumin 4.2 g/dL (3.2-5.5) 11/29/23 11:19 Globulin 2.3 g/dL (2.1-4.2) 11/29/23 11:19 Albumin/Globulin Ratio 1.8 (1.0-2.2) 11/29/23 11:19 Lipase 38 U/L (11-82) 11/29/23 11:19 Urine Color YELLOW 11/29/23 11:44 Urine Clarity CLEAR (CLEAR) 11/29/23 11:44 Urine pH 7.0 PH (5.0-7.5) 11/29/23 11:44 Ur Specific Dime Box 1.010 (1.002-1.030) 11/29/23 11:44 Urine Protein NEGATIVE mg/dL (NEGATIVE) 11/29/23 11:44 Urine Glucose (UA) NEGATIVE mg/dL (NEGATIVE) 11/29/23 11:44 Urine Ketones 40 mg/dL (NEGATIVE) H 11/29/23 11:44 Urine Occult Blood NEGATIVE (NEGATIVE) 11/29/23 11:44 Urine Nitrite NEGATIVE (NEGATIVE) 11/29/23 11:44 Urine Bilirubin NEGATIVE (NEGATIVE) 11/29/23 11:44 Urine Urobilinogen 0.2 (NORMAL) E.U./dL (NORMAL) 11/29/23 11:44 Ur Leukocyte Esterase NEGATIVE (NEGATIVE) 11/29/23 11:44 Ur Microscopic Review NOT INDICATED 11/29/23 11:44 Urine Culture Comments NOT INDICATED 11/29/23 11:44 Nasal Adenovirus (PCR) NOT DETECTED 11/29/23 11:50 Nasal B. parapertussis DNA (PCR) NOT DETECTED 11/29/23 11:50 Nasal Coronavir 229E PCR NOT DETECTED 11/29/23 11:50 Nasal Coronavir HKU1 PCR NOT DETECTED 11/29/23 11:50 Nasal Coronavir NL63 PCR NOT DETECTED 11/29/23 11:50 Nasal Coronavir OC43 PCR NOT DETECTED 11/29/23 11:50 Nasal Enterovir/Rhinovir PCR NOT DETECTED 11/29/23 11:50 Nasal Influenza B PCR NOT DETECTED 11/29/23 11:50 Nasal Influenza A PCR NOT DETECTED 11/29/23 11:50 Nasal Parainfluen 1 PCR NOT DETECTED 11/29/23 11:50 Nasal Parainfluen 2 PCR NOT DETECTED 11/29/23 11:50 Nasal Parainfluen 3 PCR NOT DETECTED 11/29/23 11:50 Nasal Parainfluen 4 PCR NOT DETECTED 11/29/23 11:50 Nasal RSV (PCR) NOT DETECTED 11/29/23 11:50 Nasal B.pertussis DNA PCR NOT DETECTED 11/29/23 11:50 Nasal C.pneumoniae (PCR) NOT DETECTED 11/29/23 11:50 Joss Human Metapneumo PCR NOT DETECTED 11/29/23 11:50 Nasal M.pneumoniae (PCR) NOT DETECTED 11/29/23 11:50 Nasal SARS-CoV-2 (PCR) NOT DETECTED 11/29/23 11:50 Salicylates < 1.5 mg/dL 11/29/23 11:19 Urine Opiates Screen NEGATIVE (NEGATIVE) 11/29/23 11:44 Ur Buprenorphine Scrn NEGATIVE (NEGATIVE) 11/29/23 11:44 Ur Oxycodone Screen NEGATIVE (NEGATIVE) 11/29/23 11:44 Urine Methadone Screen NEGATIVE (NEGATIVE) 11/29/23 11:44 Acetaminophen 0.1 ug/mL 11/29/23 11:19 Ur Barbiturates Screen NEGATIVE (NEGATIVE) 11/29/23 11:44 Ur Tricyclics Screen NEGATIVE (NEGATIVE) 11/29/23 11:44 Ur Phencyclidine Scrn NEGATIVE (NEGATIVE) 11/29/23 11:44 Ur Amphetamine Screen NEGATIVE (NEGATIVE) 11/29/23 11:44 U Methamphetamines Scrn NEGATIVE (NEGATIVE) 11/29/23 11:44 U Benzodiazepines Scrn NEGATIVE (NEGATIVE) 11/29/23 11:44 Urine Cocaine Screen NEGATIVE (NEGATIVE) 11/29/23 11:44 U Cannabinoids Screen NEGATIVE (NEGATIVE) 11/29/23 11:44 Ur Drug Screen Comment CUTOFF CONC BELOW: 11/29/23 11:44 Ethyl Alcohol < 10.0 mg/dL 11/29/23 11:19
[2023-11-30] MEDS ORDERED: LORazepam 2 MG/ML VIAL IVP SCH (18:39)
[2023-11-30] MEDS: LORazepam 1 MG TABLET PO STA (19:40)
[2023-11-30] MEDS ORDERED: QUEtiapine 25 MG TABLET PO SCH (21:00)
[2023-11-30] MEDS: GABAPENTIN 300 MG CAPSULE PO SCH (22:08)
[2023-12-01 05:37] LABS: BASOPHILS % (AUTO) 0.5 %; EOSINOPHILS # (AUTO) 0.3 10^3/uL (0.0-0.7); EOSINOPHILS % (AUTO) 4.7 %; HCT - HEMATOCRIT 34.8 % (37.0-47.0); LYMPHOCYTES # (AUTO) 1.1 10^3/uL (1.5-3.5); LYMPHOCYTES % (AUTO) 18.5 %; MEAN CORPUSCULAR HEMOGLOBIN 30.8 pg (27.0-31.0); MEAN CORPUSCULAR HGB CONC 34.5 g/dL (32.0-36.0); MEAN CORPUSCULAR VOLUME 89.2 fL (81.0-99.0); MEAN PLATELET VOLUME 9.1 fL (7.9-10.8); MONOCYTES # (AUTO) 0.9 10^3/uL (0.0-1.0); MONOCYTES % (AUTO) 14.3 %; NEUTROPHILS # (AUTO) 3.7 10^3/uL (1.5-6.6); NEUTROPHILS % (AUTO) 61.5 %; PLT - PLATELET COUNT 292 10^3/uL (130-450); RED CELL DISTRIBUTION WIDTH 11.8 % (12.0-15.0)
[2023-12-01 05:49] LABS: CALCIUM 9.1 mg/dL (8.5-10.3); CREATININE 0.9 mg/dL (0.6-1.3); MAGNESIUM 2.1 mg/dL (1.7-2.3)
[2023-12-01] MEDS: CELECOXIB 100 MG CAPSULE PO SCH (09:28)
[2023-12-01] MEDS: lisinopriL 20 MG TABLET PO SCH (09:28)
[2023-12-01] MEDS: LORazepam 1 MG TABLET PO STA (10:55)
--- NOTE | 2023-12-01 12:42 | CT Report ---
PROCEDURE: Head WO INDICATIONS: Persistent confusion TECHNIQUE: Noncontrast 4.5 mm thick angled axial sections acquired from the foramen magnum to the vertex. For r adiation dose reduction, the following was used: automated exposure control, adjustment of mA and/or kV according to patient size. COMPARISON: None. FINDINGS: Image quality: Excellent. CSF spaces: Basal cisterns are patent. No extra-axial fluid collections. Ventricles are prominent but symmetrical in size and shape. Brain: No midline shift. No intracranial masses or hemorrhage. There is moderate cerebral volume l oss. Periventricular white matter chronic small vessel ischemic changes are present. Frye-white matte r interface is normal. Skull and face: Calvarium and visualized facial bones are intact, without suspicious lesions. Sinuses: Visualized sinuses and mastoids are clear. IMPRESSION: 1. No acute intracranial pathology. 2. Cerebral volume loss and periventricular white matter chronic small vessel ischemic changes. 3. Symmetrical prominence of cerebral ventricles. The finding may be secondary to central atrophy. A differential diagnosis is normal pressure hydrocephalus. Reviewed by: Suki Ballesteros MD on 12/01/2023 12:41 PM PST Approved by: Suki Ballesteros MD on 12/01/2023 12:41 PM PST Station ID: [id number]
--- NOTE | 2023-12-01 14:44 | TELEPSYCH PHYS NOTE ---
[facility] Consult - Medication & Allergies Home Medications: Ambulatory Orders Medication Instructions Recorded Confirmed Gabapentin [Neurontin] 300 mg PO TID 11/24/23 11/29/23 Lisinopril [Zestril] 40 mg PO DAILY 11/24/23 11/29/23 QUEtiapine [SEROquel] 25 mg PO QPM #30 tablet 11/24/23 11/29/23 Simvastatin [Zocor] 40 mg PO DAILY 11/24/23 11/29/23 hydroCHLOROthiazide [Hydrodiuril] 25 mg PO DAILY 11/24/23 11/29/23 metFORMIN [Glucophage] 750 mg PO DAILY 11/24/23 11/29/23 Celecoxib 100 mg PO DAILY 11/29/23 11/29/23 Estradiol [Estrace] 0.5 mg PO DAILY 11/29/23 11/29/23 Allergies/Adverse Reactions: Allergies Allergy/AdvReac Type Severity Reaction Status Date / Time Penicillins Allergy Unknown Verified 11/29/23 10:51 - Drug & Alcohol History Use: Uses substance without health or social issues: NONE Abuse: Recurrent use of substance despite neg consequences: NONE Dependence: Experiences withdrawal or developed tolerances: NONE - Medical History Psychiatric: reports: Other (episodes of confusion in past few months) Cardiovascular: reports: Hypertension, High cholesterol GUEST HISTORY CLERK: reports: Ovarian cancer (30+ years ago, stage 1, s/p [facility]) Musculoskeletal: reports: Osteoarthritis - Surgical History Orthopedic: reports: Knee replacement /GUEST HISTORY CLERK: reports: Hysterectomy, Oophrectomy - Family & Social History Family History Comment/Other: unable to obtain due to altered mental status Living Situation: Alone Social History Notes: Recently expressed interest in moving into senior housing. nonsmoker, no hx of alcohol abuse
--- NOTE | 2023-12-01 15:40 | TELEPSYCH PHYS NOTE ---
[facility] Telepsych Consult Consult Date: 12/01/23 Name of Referring Provider:: Fadumo Crowley Reason for Consult: AMS - Suicide Risk Sreening (ASQ Tool) In the past few weeks, have you wished you were ?: Yes In the past few weeks, have you felt that you or your family would be better off if you were ?: No In the past week, have you been having thoughts about killing yourself?: No Have you ever tried to kill yourself?: No - Assessment Language: Omani Branch Service Representative Required: No Cultural, Orthodox or Spiritual Preferences: Sabianist Notes: Patient is refusing care and treatment. Patient seems to be displaying paranoid thoughts and behavior with tangential thought process. Patient is difficult to keep on task and gets anxious with regular tasks provided (ex: paranoid yogurt was tampered with and wouldn't eat). History of Present Illness: On interview, pt states she wanted to invest in an ice float. She states an ice float is where you put elders on it, and elders float out into the sea. She states she felt like that, because she felt her mind and body were breaking down. She reports it was joke. Suicide Ideation - Homicide Ideation - Self Harm: Denies SI, denies HI, denies self-harm. Pt states she wants to live for her daughter and her grand-daughter. She wants to live for her other daughter as well. She has her own place. Psychiatric History - Treatment History: Inpatient psychiatric hospitalization: denies Past diagnosis: denies Community Resources Accessed: Denies having outpatient psychiatrist and therapist Family Psych History/ History of suicide: denies Nutritional Status: No nutritional concerns - Medication & Allergies Home Medications: Ambulatory Orders Medication Instructions Recorded Confirmed Gabapentin [Neurontin] 300 mg PO TID 11/24/23 11/29/23 Lisinopril [Zestril] 40 mg PO DAILY 11/24/23 11/29/23 QUEtiapine [SEROquel] 25 mg PO QPM #30 tablet 11/24/23 11/29/23 Simvastatin [Zocor] 40 mg PO DAILY 11/24/23 11/29/23 hydroCHLOROthiazide [Hydrodiuril] 25 mg PO DAILY 11/24/23 11/29/23 metFORMIN [Glucophage] 750 mg PO DAILY 11/24/23 11/29/23 Celecoxib 100 mg PO DAILY 11/29/23 11/29/23 Estradiol [Estrace] 0.5 mg PO DAILY 11/29/23 11/29/23 Allergies/Adverse Reactions: Allergies Allergy/AdvReac Type Severity Reaction Status Date / Time Penicillins Allergy Unknown Verified 11/29/23 10:51 - Drug & Alcohol History Does patient have Drug/ETOH history or addictive behavior?: No Use: Uses substance without health or social issues: NONE, Cannabis (occasionally uses THC gumies, once every 2 weeks) Abuse: Recurrent use of substance despite neg consequences: NONE Dependence: Experiences withdrawal or developed tolerances: NONE - Personal Information Does the patient have a history or present tendencies for violence?: None Services History: denies Does patient have any Legal Charges or Investigations?: No Environment & Living Situation - Social, Peer-Group (Note): At home Environment & Living Situation - Social, Peer-Group (Notes): Lives in a condo, states she has a good support system. Marital Status - Family Circumstances: 2 adopted children and 2 grandchildren Stressors - Financial Concerns: She would like to sell her condo and move into another facility, like an assisted living facility. 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 She reports pt had been waxing and waning. But is doing much better now and can have full conversation. Collateral with Ciarra (daughter): She has been very paranoid. She thinks people are selling businesses and taking over. She had confusion. She is doing better today. She was diagnosed with hyponatremia. Since last Spring, she had a little more anxiety but was completely off baseline 2-3 weeks ago. She didn't want to eat. She couldn't go to the grocery store. - Medical History Psychiatric: reports: Other (episodes of confusion in past few months) Neurological: reports: None Cardiovascular: reports: Hypertension, High cholesterol WEB DEVELOPMENT DIRECTOR: reports: Ovarian cancer (30+ years ago, stage 1, s/p [facility]) Musculoskeletal: reports: Osteoarthritis - Surgical History Orthopedic: reports: Knee replacement /WEB DEVELOPMENT DIRECTOR: reports: Hysterectomy, Oophrectomy - Family & Social History Family History Comment/Other: unable to obtain due to altered mental status Living Situation: Alone Social History Notes: Recently expressed interest in moving into senior housing. nonsmoker, no hx of alcohol abuse Childhood History: denies hx of trauma - Mental Status Exam Appearance and Attire: hospital clothes, casually groomed Attitude and Behavior: cooperative, no PMA, no PMR Speech: normal rate, amount Affect and Mood: "good", euthymic Association and Thought Process: intact association, tangential thought process at times Thought Content: denies SI, denies HI Perception: denies AVH Sensorium, memory and orientation: alert and oriented to person, place, year, month Intellectual - Cognitive functioning: seems grossly intact currently Insight and Judgement: fair insight, fair judgment Emotional and Behavioral Functioning: fair Ability to Self-Care: would recommend PT/OT assess and see if she needs higher level of care - Personal Goals Short-term Goals: would like to clear out condo, sell it, and move to an ESTHER Long-term Goals: would like to move to an RESIDENTIAL and sell the van - Risk/Protective Factors Risk Factors: Trigger events leading to humiliation, shame and/or despair Protective Factors / Internal: Ability to cope with stress, Frustration tolerance, Orthodox beliefs, Identifies reasons for living Protective Factors / External: Cultural, spiritual and/or moral attitudes against suicide, Responsibility to children, Supportive social network of family or friends - Plan Impression/Risk Assessment: Pt is a 77 yoF w/ hx of hypertension and DM2 who was admitted for hyponatremia and altered mental status. Her AMS could be secondary to confusion from hyponatremia, delirium secondary to UTI diagnosed 2 weeks ago, or both. Per collateral information, pt has been waxing and waning. She is doing much better today. She is alert and oriented to person, place. She was not paranoid on interview. She was pleasant, friendly. She was slightly tangential in thought process, but it may be age appropriate. Pt is going to have a neurological evaluation in December to be assessed for dementia. She denies SI, denies HI. I believe her altered mental status is probably secondary to delirium from UTI and hyponatremia. At this time, she does not meet criteria for inpatient psychiatric hospitalization. Would recommend PT/OT evaluation to see if she needs home health or a higher level of care. Treatment - Therapy Recommendations: Recommend OT/PT evaluation to see if she needs home health or higher level of care. Pt would like social work to help in finding an ESTHER. Does not meet criteria for inpatient psychiatric hospitalization. Would recommend outpatient therapy. Please ask patient to follow up with her neurological evaluation in December in her discharge summary. Pharmacological Recommendations: Since there was mild concern for serotonin syndrome initially, avoid antipsychotics and antidepressants at this time. Could consider low dose ativan .5mg daily prn for agitation. Do not discharge patient with ativan. - Delirium precautions. As much as possible, try and avoid sedatives in the day - Problem List (1) Delirium Conclusion/Plan: - Delirium precautions - ativan .5mg daily prn for agitation, use as last resort - Time Spent & Provider Location Telepsych consultation conducted via videoconferencing: Yes List names and roles of persons who participated in consult: Sebastian London MD Telepsych Provider Location: [place] Time Spent (Minutes): 50
[2023-12-01] MEDS: MULTIVITAMIN W/MINERALS TABLET PO SCH (16:27)
--- NOTE | 2023-12-01 19:51 | PROVIDER PROGRESS NOTE ---
Assessment/Plan - Problem List (1) Hyponatremia Assessment/Plan: Suspect multifactorial due to use of diuretics, use of Seroquel and today I learned she drank about 3L of water daily. She received 100 mL of 3% saline and 1L of NS in ER. Na 118 on admit, improved to 122 in 4h post this treatment. Glucose not significantly elevated. Plan: Will NOT restart Seroquel Hold HCTZ Goal is to increase Na by 6-8 mEq daily. Today she refused to have her iv restarted, so we will start her on salt tablets Today I discussed the plan to decrease free water intake and to increase fluids with solutes, like broths, juices, milk Follow serum sodium Q8h. She was refusing blood draws, until sister and daughter were oin her room Will check her urine sodium, working up SIADH Will not order serum osmolality since it is a send out lab that takes ~3 days to get results I explained the plan to pt and updated one (of her 2) daughters and her sister from [place], at bedside today (2) Altered mental status Conclusion/Plan: She has poor memory, is paranoid, and is jumping from topic to topic Likely multifactorial due to possible mild serotonin syndrome and hyponatremia in the setting of possible underlying cognitive impairment. She is to have a Neuro eval in December, she stated. Urine tox screen was negative. Tylenol and salicylate levels unrevealing for cause. No h/o drug or EtOH use. She is improving saying more words than on admission. On admission was saying an occasional word and nodding y/n appropriately to some questions, following some commands but often nonverbal and restless. Plan: Monitor mental status Treat low Na as above If becomes agitated, use benzos Will start to resume home gabapentin Will not start Seroquel If no head CT was done, will obtain head CT. She may need Benzos if she becomes agitated during imagimg in XRay dept. Will also check B12, TSH and vit D levels (3) Insomnia Daughter reported she had not slept in 1 week. Plan: Benzos prn Will await reconciled med list for any other meds to resume (4) Diabetes type 2, controlled Conclusion/Plan: Chronic. Stable. A1c in 05/2023 was 6.3 and is 6.8 here. She was on metformin at home, but today I learned she was hardly eating anything for several days Plan: Hold metformin yet A Reg diet was ordered since she is eating very little Will order hypoglycemia protocol, POC fingerstick checks, and ss Insulin, but right now not taking much PO Qualifiers: Diabetes mellitus prison insulin use: without rat exterminator use Diabetes mellitus complication status: with unspecified complications Qualified Code(s): E11.8 - Type 2 diabetes mellitus with unspecified complications (5) FTT Family says she has not eaten for 3 days. Patient states she was "drinking water as she was instructed in order to flush herself". Plan: A Reg diet was ordered since she is eating very little (6) HTN (hypertension) Conclusion/Plan: BP has been elevated, suspect due to possible mild serotonin syndrome on top of agitation/confusion Plan: Hold HCTZ due to hyponatremia Cont the restarted home lisinopril I explained to pt, sister and daughter at bedside, why some meds have not been resumed yet Qualifiers: Hypertension type: primary hypertension Qualified Code(s): I10 - Essential (primary) hypertension (7) Chronic pain Conclusion/Plan: Has pain in her back and hips which is chronic and has lately limited her desire to get out of the home. Plan: Will resume home gabapentin and celebrex Tylenol prn for pain also Qualifiers: Chronic pain type: chronic pain syndrome Qualified Code(s): G89.4 - Chronic pain syndrome (8) Fever Conclusion/Plan: RESOLVED Received dose of cefepime in ED for presumed infection. UA, respiratory panel, CXR unremarkable. S/p recent course of nitrofurantoin for UTI. WBC normal. Suspect fever was related to drug reaction/possible mild serotonin syndrome. Differential dx includes SPINNING FRAME CHANGER infection, bloodstream infection (both unlikely). Plan: Anti-pyretics prn, cooling measures (ice packs, etc) if needed If fever recurs and she develops leukocytosis, consider further workup for infectious source Follow up blood cx results Remain off further antibiotics for now - Current Meds Current Meds: Current Medications Generic Name Dose Route Start Last Admin Trade Name Freq PRN Reason Stop Dose Admin Celecoxib 100 mg 12/01/23 09:00 12/01/23 09:28 Celecoxib 100 Mg Capsule PO 100 mg DAILY TALIB Administration Gabapentin 300 mg 11/30/23 22:00 12/01/23 13:49 Gabapentin 300 Mg Capsule PO 300 mg TID TALIB Administration Lisinopril 40 mg 11/30/23 18:42 12/01/23 09:28 Lisinopril 20 Mg Tablet PO 40 mg DAILY TALIB Administration Multivitamins/Minerals 1 tab 12/01/23 17:00 12/01/23 16:27 Multivitamin W/Minerals Tablet PO 1 tab DAILYWM TALIB Administration Sodium Chloride 10 ml 11/29/23 17:00 12/01/23 16:27 Sodium Chloride Flush 0.9% 10 Ml Syringe IVP Not Given 0100,0900,1700 [facility] Sodium Chloride 1 gm 11/30/23 14:05 12/01/23 09:29 Sodium Chloride 1 Gm Tablet PO 1 gm DAILY TALIB Administration - Lab Result Fish Bone Diagrams: 12/01/23 05:23 12/03/23 07:51 - Additional Planning My Orders: My Active Orders 11/30/23 22:00 Gabapentin [Neurontin] 300 mg PO TID 12/01/23 09:00 Celecoxib [CeleBREX] 100 mg PO DAILY 12/01/23 17:00 Multivitamin W/Minerals [Theragran M] 1 tab PO DAILYWM 12/01/23 21:00 SODIUM [CHEM] Q8H 12/02/23 05:00 MAGNESIUM [CHEM] DAILYLAB SODIUM [CHEM] Q8H VITAMIN B1 (THIAMINE) BLOOD [REFLAB] DAILYLAB VITAMIN D 25-HYDROXY [REFLAB] DAILYLAB 12/02/23 13:00 SODIUM [CHEM] Q8H Subjective - Subjective Patient Reports: Other (She repeats questions over after just being told an answer. She is paranoid, wondering why I am looking her a certain way. She did not want to eat yogurt because she thought someone started it before her) Objective Vital Signs: Vital Signs - 24 hr 12/01/23 12/01/23 08:03 18:00 Temperature 36.6 C 36.4 C L Heart Rate [ 83 94 Brachial] Respiratory 16 16 Rate Blood Pressure 170/75 H 160/76 H [Right Brachial artery] O2 Saturation 97 96 Oxygen O2 Source Room air I&O (Last 24 Hrs): Intake and Output Totals x24h 11/29/23 11/30/23 12/01/23 23:59 23:59 23:59 Intake Total 1300 640 240 Output Total 300 Balance 1300 340 240 General: Alert, Mild distress (Confused and paranoid) HEENT: Mucous membr. moist/pink, Other (Disheveled) Neck: Supple, No JVD Neuro: Alert, Non Focal (Gait was not tested), Other (Poor memory, repeats questions several times, shows paranoid behavior) Cardiovascular: Regular rate Respiratory: No respiratory distress Abdomen: No tenderness Extremities: No edema, No tenderness/swelling - Results Results: Laboratory Results WBC 6.0 x10^3/uL (4.8-10.8) 12/01/23 05:23 RBC 3.90 10^6/uL (4.20-5.40) L 12/01/23 05:23 Hgb 12.0 g/dL (12.0-16.0) 12/01/23 05:23 Hct 34.8 % (37.0-47.0) L 12/01/23 05:23 MCV 89.2 fL (81.0-99.0) 12/01/23 05:23 MCH 30.8 pg (27.0-31.0) 12/01/23 05:23 MCHC 34.5 g/dL (32.0-36.0) 12/01/23 05:23 RDW 11.8 % (12.0-15.0) L 12/01/23 05:23 Plt Count 292 10^3/uL (130-450) 12/01/23 05:23 MPV 9.1 fL (7.9-10.8) 12/01/23 05:23 Neut # (Auto) 3.7 10^3/uL (1.5-6.6) 12/01/23 05:23 Lymph # (Auto) 1.1 10^3/uL (1.5-3.5) L 12/01/23 05:23 Harmon # (Auto) 0.9 10^3/uL (0.0-1.0) 12/01/23 05:23 Eos # (Auto) 0.3 10^3/uL (0.0-0.7) 12/01/23 05:23 Baso # (Auto) 0.0 10^3/uL (0.0-0.1) 12/01/23 05:23 Absolute Nucleated RBC 0.00 x10^3/uL 12/01/23 05:23 Nucleated RBC % 0.0 /100WBC 12/01/23 05:23 Sodium 127 mmol/L (135-145) L 12/01/23 13:55 Potassium 4.0 mmol/L (3.5-4.5) 12/01/23 05:23 Chloride 97 mmol/L (101-111) L 12/01/23 05:23 Carbon Dioxide 23 mmol/L (21-32) 12/01/23 05:23 Anion Gap 9.0 (6-13) 12/01/23 05:23 BUN 12 mg/dL (6-20) 12/01/23 05:23 Creatinine 0.9 mg/dL (0.6-1.3) 12/01/23 05:23 Estimated GFR (MDRD) 61 (>89) L 12/01/23 05:23 Glucose 107 mg/dL (74-104) H 12/01/23 05:23 POC Whole Bld Glucose 177 mg/dL (70 - 100) H 12/01/23 17:05 Estimat Average Glucose 148 mg/dL (70-100) H 11/30/23 07:44 Hemoglobin A1c % 6.8 % (4.27-6.07) H 11/30/23 07:44 Lactic Acid 1.2 mmol/L (0.5-2.2) 11/29/23 11:19 Calcium 9.1 mg/dL (8.5-10.3) 12/01/23 05:23 Magnesium 2.1 mg/dL (1.7-2.3) 12/01/23 05:23 Total Bilirubin 0.8 mg/dL (0.2-1.0) 11/29/23 11:19 AST 24 IU/L (10-42) 11/29/23 11:19 ALT 20 IU/L (10-60) 11/29/23 11:19 Alkaline Phosphatase 49 IU/L (42-121) 11/29/23 11:19 Total Protein 6.5 g/dL (6.4-8.9) 11/29/23 11:19 Albumin 4.2 g/dL (3.2-5.5) 11/29/23 11:19 Globulin 2.3 g/dL (2.1-4.2) 11/29/23 11:19 Albumin/Globulin Ratio 1.8 (1.0-2.2) 11/29/23 11:19 Lipase 38 U/L (11-82) 11/29/23 11:19 Vitamin B12 309 pg/mL (180-914) 12/01/23 13:55 Urine Color YELLOW 11/29/23 11:44 Urine Clarity CLEAR (CLEAR) 11/29/23 11:44 Urine pH 7.0 PH (5.0-7.5) 11/29/23 11:44 Ur Specific Standish 1.010 (1.002-1.030) 11/29/23 11:44 Urine Protein NEGATIVE mg/dL (NEGATIVE) 11/29/23 11:44 Urine Glucose (UA) NEGATIVE mg/dL (NEGATIVE) 11/29/23 11:44 Urine Ketones 40 mg/dL (NEGATIVE) H 11/29/23 11:44 Urine Occult Blood NEGATIVE (NEGATIVE) 11/29/23 11:44 Urine Nitrite NEGATIVE (NEGATIVE) 11/29/23 11:44 Urine Bilirubin NEGATIVE (NEGATIVE) 11/29/23 11:44 Urine Urobilinogen 0.2 (NORMAL) E.U./dL (NORMAL) 11/29/23 11:44 Ur Leukocyte Esterase NEGATIVE (NEGATIVE) 11/29/23 11:44 Ur Microscopic Review NOT INDICATED 11/29/23 11:44 Urine Culture Comments NOT INDICATED 11/29/23 11:44 Nasal Adenovirus (PCR) NOT DETECTED 11/29/23 11:50 Nasal B. parapertussis DNA (PCR) NOT DETECTED 11/29/23 11:50 Nasal Coronavir 229E PCR NOT DETECTED 11/29/23 11:50 Nasal Coronavir HKU1 PCR NOT DETECTED 11/29/23 11:50 Nasal Coronavir NL63 PCR NOT DETECTED 11/29/23 11:50 Nasal Coronavir OC43 PCR NOT DETECTED 11/29/23 11:50 Nasal Enterovir/Rhinovir PCR NOT DETECTED 11/29/23 11:50 Nasal Influenza B PCR NOT DETECTED 11/29/23 11:50 Nasal Influenza A PCR NOT DETECTED 11/29/23 11:50 Nasal Parainfluen 1 PCR NOT DETECTED 11/29/23 11:50 Nasal Parainfluen 2 PCR NOT DETECTED 11/29/23 11:50 Nasal Parainfluen 3 PCR NOT DETECTED 11/29/23 11:50 Nasal Parainfluen 4 PCR NOT DETECTED 11/29/23 11:50 Nasal RSV (PCR) NOT DETECTED 11/29/23 11:50 Nasal B.pertussis DNA PCR NOT DETECTED 11/29/23 11:50 Nasal C.pneumoniae (PCR) NOT DETECTED 11/29/23 11:50 Joss Human Metapneumo PCR NOT DETECTED 11/29/23 11:50 Nasal M.pneumoniae (PCR) NOT DETECTED 11/29/23 11:50 Nasal SARS-CoV-2 (PCR) NOT DETECTED 11/29/23 11:50 Salicylates < 1.5 mg/dL 11/29/23 11:19 Urine Opiates Screen NEGATIVE (NEGATIVE) 11/29/23 11:44 Ur Buprenorphine Scrn NEGATIVE (NEGATIVE) 11/29/23 11:44 Ur Oxycodone Screen NEGATIVE (NEGATIVE) 11/29/23 11:44 Urine Methadone Screen NEGATIVE (NEGATIVE) 11/29/23 11:44 Acetaminophen 0.1 ug/mL 11/29/23 11:19 Ur Barbiturates Screen NEGATIVE (NEGATIVE) 11/29/23 11:44 Ur Tricyclics Screen NEGATIVE (NEGATIVE) 11/29/23 11:44 Ur Phencyclidine Scrn NEGATIVE (NEGATIVE) 11/29/23 11:44 Ur Amphetamine Screen NEGATIVE (NEGATIVE) 11/29/23 11:44 U Methamphetamines Scrn NEGATIVE (NEGATIVE) 11/29/23 11:44 U Benzodiazepines Scrn NEGATIVE (NEGATIVE) 11/29/23 11:44 Urine Cocaine Screen NEGATIVE (NEGATIVE) 11/29/23 11:44 U Cannabinoids Screen NEGATIVE (NEGATIVE) 11/29/23 11:44 Ur Drug Screen Comment CUTOFF CONC BELOW: 11/29/23 11:44 Ethyl Alcohol < 10.0 mg/dL 11/29/23 11:19
[2023-12-02 06:29] LABS: MAGNESIUM 2.1 mg/dL (1.7-2.3)
[2023-12-02] MEDS: INSULIN LISPRO 300 UNIT/3 ML PEN SUBQ SCH (09:42)
[2023-12-02] MEDS ORDERED: metFORMIN 850 MG TABLET PO SCH (10:41)
--- NOTE | 2023-12-02 19:01 | PROVIDER PROGRESS NOTE ---
Assessment/Plan - Problem List (1) Hyponatremia Assessment/Plan: Suspect multifactorial due to use of diuretics, use of Seroquel and today I learned she drank about 3L of water daily. She received 100 mL of 3% saline and 1L of NS in ER. Na 118>> 122>> 129 today. Yesterday she refused to have her iv restarted, so I ordered 1 salt tablet daily Plan: Remain off Seroquel remain off HCTZ permanenetly Continue on salt tablet daily. Goal is to increase Na by 6-8 mEq daily. Cont free water restriction, but promote solutes, like broths, juices, milk Follow serum sodium Q8h. Will check her urine sodium, working up SIADH Will not order serum osmolality since it is a send out lab that takes ~3 days to get results (2) Altered mental status Conclusion/Plan: She has poor memory, was exhibiting paranoia, and is still jumping from topic to topic. Likely multifactorial due to possible mild serotonin syndrome and hyponatremia in the setting of possible underlying cognitive impairment. Urine tox screen was negative. Tylenol and salicylate levels unrevealing for cause. No h/o drug or EtOH use. She had a Telepsych evaluation and the psychiatrist thought this was delirium from hyponatremia and her recent UTI She refused a head CT. Today she has improved with being less paranoid Plan: Monitor mental status Treat low Na as above If becomes agitated, use benzos Cont home gabapentin Will not start Seroquel Will obtain head CT Will also check B12, TSH and vit D levels (3) Normal pressure hydrocephalus She did cooperate but needed Ativan p.o. for undergoing a head CT. This was read as having enlarged ventricles and findings consistent with NPH. No strokes were seen. Plan: She will need outpatient neurology and neurosurgery management, possibly a shunt placed (4) Insomnia Daughter reported she had not slept in 1 week. Plan: Benzos prn (5) Diabetes type 2, controlled Conclusion/Plan: Chronic. Stable. A1c in 05/2023 was 6.3 and is 6.8 here. 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 Patient states she was "drinking water as she was instructed in order to flush herself". Plan: A Reg diet was ordered since she is eating very little (7) HTN (hypertension) Conclusion/Plan: BP has been elevated, suspect due to possible mild serotonin syndrome on top of agitation/confusion Plan: Hold HCTZ due to hyponatremia Cont the restarted home lisinopril Qualifiers: Hypertension type: primary hypertension Qualified Code(s): I10 - Essential (primary) hypertension (8) Chronic pain Conclusion/Plan: Has pain in her back and hips which is chronic and has lately limited her desire to get out of the home. Plan: Cont home gabapentin and celebrex Tylenol prn for pain also Qualifiers: Chronic pain type: chronic pain syndrome Qualified Code(s): G89.4 - Chronic pain syndrome (9) Fever Conclusion/Plan: RESOLVED Received dose of cefepime in ED for presumed infection. UA, respiratory panel, CXR unremarkable. S/p recent course of nitrofurantoin for UTI. WBC normal. Suspect fever was related to drug reaction/possible mild serotonin syndrome. Differential dx includes KEYSMITH infection, bloodstream infection (both unlikely). Blood cultures are all negative to date Plan: Anti-pyretics prn Remain off further antibiotics - Current Meds Current Meds: Current Medications Generic Name Dose Route Start Last Admin Trade Name Fremaribel PRN Reason Stop Dose Admin Celecoxib 100 mg 12/01/23 09:00 12/02/23 10:43 Celecoxib 100 Mg Capsule PO 100 mg DAILY TALIB Administration Gabapentin 300 mg 11/30/23 22:00 12/02/23 15:01 Gabapentin 300 Mg Capsule PO 300 mg TID TALIB Administration Insulin Human Lispro 1 - 9 unit 12/02/23 08:00 12/02/23 17:22 Insulin Lispro 300 Unit/3 Ml Pen SUBQ Not Given 0800,1200,1700,2100 TALIB Protocol Lisinopril 40 mg 11/30/23 18:42 12/02/23 10:43 Lisinopril 20 Mg Tablet PO 40 mg DAILY TALIB Administration Multivitamins/Minerals 1 tab 12/01/23 17:00 12/02/23 10:43 Multivitamin W/Minerals Tablet PO 1 tab DAILYWM TALIB Administration Sodium Chloride 10 ml 11/29/23 17:00 12/02/23 17:23 Sodium Chloride Flush 0.9% 10 Ml Syringe IVP Not Given 0100,0900,1700 TALIB Sodium Chloride 1 gm 11/30/23 14:05 12/02/23 10:43 Sodium Chloride 1 Gm Tablet PO 1 gm DAILY TALIB Administration - Lab Result Fish Bone Diagrams: 12/01/23 05:23 12/03/23 07:51 - Additional Planning My Orders: My Active Orders 12/02/23 Evaluate and Treat OT [OT] Routine Evaluate and Treat PT [PT] Routine 12/02/23 05:55 VITAMIN B1 (THIAMINE) BLOOD [REFLAB] DAILYLAB 12/02/23 Lunch Carb-controlled Diet [DIET] 12/02/23 13:23 VITAMIN D 25-HYDROXY [REFLAB] DAILYLAB 12/03/23 09:00 metFORMIN [Glucophage] 750 mg PO DAILY Subjective - Subjective Patient Reports: Feeling Better, Other (Still refusing food but interested in food that sister brought in from home. Is still suspicious and paranoid when speaking to staff) Objective Vital Signs: Vital Signs - 24 hr 12/02/23 12/02/23 01:49 10:00 Temperature 36.4 C L 36.8 C Heart Rate [ 80 79 Brachial] Respiratory 16 16 Rate Blood Pressure 137/65 H 145/76 H [Right Brachial artery] O2 Saturation 97 96 Oxygen O2 Source Room air I&O (Last 24 Hrs): Intake and Output Totals x24h 11/30/23 12/01/23 12/02/23 23:59 23:59 23:59 Intake Total 640 640 460 Output Total 300 Balance 340 640 460 General: Alert, No acute distress HEENT: Mucous membr. moist/pink Neck: Supple, No JVD Neuro: Alert, Non Focal, Other (Is paranoid then changes her answers to appear more normal. Needs assist to get out of bed) Cardiovascular: Regular rate Respiratory: No respiratory distress Abdomen: Soft, No tenderness Extremities: No edema, No tenderness/swelling - Results Results: Laboratory Results WBC 6.0 x10^3/uL (4.8-10.8) 12/01/23 05:23 RBC 3.90 10^6/uL (4.20-5.40) L 12/01/23 05:23 Hgb 12.0 g/dL (12.0-16.0) 12/01/23 05:23 Hct 34.8 % (37.0-47.0) L 12/01/23 05:23 MCV 89.2 fL (81.0-99.0) 12/01/23 05:23 MCH 30.8 pg (27.0-31.0) 12/01/23 05:23 MCHC 34.5 g/dL (32.0-36.0) 12/01/23 05:23 RDW 11.8 % (12.0-15.0) L 12/01/23 05:23 Plt Count 292 10^3/uL (130-450) 12/01/23 05:23 MPV 9.1 fL (7.9-10.8) 12/01/23 05:23 Neut # (Auto) 3.7 10^3/uL (1.5-6.6) 12/01/23 05:23 Lymph # (Auto) 1.1 10^3/uL (1.5-3.5) L 12/01/23 05:23 [place] # (Auto) 0.9 10^3/uL (0.0-1.0) 12/01/23 05:23 Eos # (Auto) 0.3 10^3/uL (0.0-0.7) 12/01/23 05:23 Baso # (Auto) 0.0 10^3/uL (0.0-0.1) 12/01/23 05:23 Absolute Nucleated RBC 0.00 x10^3/uL 12/01/23 05:23 Nucleated RBC % 0.0 /100WBC 12/01/23 05:23 Sodium 128 mmol/L (135-145) L 12/02/23 13:23 Potassium 4.0 mmol/L (3.5-4.5) 12/01/23 05:23 Chloride 97 mmol/L (101-111) L 12/01/23 05:23 Carbon Dioxide 23 mmol/L (21-32) 12/01/23 05:23 Anion Gap 9.0 (6-13) 12/01/23 05:23 BUN 12 mg/dL (6-20) 12/01/23 05:23 Creatinine 0.9 mg/dL (0.6-1.3) 12/01/23 05:23 Estimated GFR (MDRD) 61 (>89) L 12/01/23 05:23 Glucose 107 mg/dL (74-104) H 12/01/23 05:23 POC Whole Bld Glucose 139 mg/dL (70 - 100) H 12/02/23 16:36 Estimat Average Glucose 148 mg/dL (70-100) H 11/30/23 07:44 Hemoglobin A1c % 6.8 % (4.27-6.07) H 11/30/23 07:44 Lactic Acid 1.2 mmol/L (0.5-2.2) 11/29/23 11:19 Calcium 9.1 mg/dL (8.5-10.3) 12/01/23 05:23 Magnesium 2.1 mg/dL (1.7-2.3) 12/02/23 05:55 Total Bilirubin 0.8 mg/dL (0.2-1.0) 11/29/23 11:19 AST 24 IU/L (10-42) 11/29/23 11:19 ALT 20 IU/L (10-60) 11/29/23 11:19 Alkaline Phosphatase 49 IU/L (42-121) 11/29/23 11:19 Total Protein 6.5 g/dL (6.4-8.9) 11/29/23 11:19 Albumin 4.2 g/dL (3.2-5.5) 11/29/23 11:19 Globulin 2.3 g/dL (2.1-4.2) 11/29/23 11:19 Albumin/Globulin Ratio 1.8 (1.0-2.2) 11/29/23 11:19 Lipase 38 U/L (11-82) 11/29/23 11:19 Vitamin B12 309 pg/mL (180-914) 12/01/23 13:55 Urine Color YELLOW 11/29/23 11:44 Urine Clarity CLEAR (CLEAR) 11/29/23 11:44 Urine pH 7.0 PH (5.0-7.5) 11/29/23 11:44 Ur Specific [place] 1.010 (1.002-1.030) 11/29/23 11:44 Urine Protein NEGATIVE mg/dL (NEGATIVE) 11/29/23 11:44 Urine Glucose (UA) NEGATIVE mg/dL (NEGATIVE) 11/29/23 11:44 Urine Ketones 40 mg/dL (NEGATIVE) H 11/29/23 11:44 Urine Occult Blood NEGATIVE (NEGATIVE) 11/29/23 11:44 Urine Nitrite NEGATIVE (NEGATIVE) 11/29/23 11:44 Urine Bilirubin NEGATIVE (NEGATIVE) 11/29/23 11:44 Urine Urobilinogen 0.2 (NORMAL) E.U./dL (NORMAL) 11/29/23 11:44 Ur Leukocyte Esterase NEGATIVE (NEGATIVE) 11/29/23 11:44 Ur Microscopic Review NOT INDICATED 11/29/23 11:44 Urine Culture Comments NOT INDICATED 11/29/23 11:44 Urine Sodium 18.1 mmol/L 12/02/23 14:52 Nasal Adenovirus (PCR) NOT DETECTED 11/29/23 11:50 Nasal B. parapertussis DNA (PCR) NOT DETECTED 11/29/23 11:50 Nasal Coronavir 229E PCR NOT DETECTED 11/29/23 11:50 Nasal Coronavir HKU1 PCR NOT DETECTED 11/29/23 11:50 Nasal Coronavir NL63 PCR NOT DETECTED 11/29/23 11:50 Nasal Coronavir OC43 PCR NOT DETECTED 11/29/23 11:50 Nasal Enterovir/Rhinovir PCR NOT DETECTED 11/29/23 11:50 Nasal Influenza B PCR NOT DETECTED 11/29/23 11:50 Nasal Influenza A PCR NOT DETECTED 11/29/23 11:50 Nasal Parainfluen 1 PCR NOT DETECTED 11/29/23 11:50 Nasal Parainfluen 2 PCR NOT DETECTED 11/29/23 11:50 Nasal Parainfluen 3 PCR NOT DETECTED 11/29/23 11:50 Nasal Parainfluen 4 PCR NOT DETECTED 11/29/23 11:50 Nasal RSV (PCR) NOT DETECTED 11/29/23 11:50 Nasal B.pertussis DNA PCR NOT DETECTED 11/29/23 11:50 Nasal C.pneumoniae (PCR) NOT DETECTED 11/29/23 11:50 Joss Human Metapneumo PCR NOT DETECTED 11/29/23 11:50 Nasal M.pneumoniae (PCR) NOT DETECTED 11/29/23 11:50 Nasal SARS-CoV-2 (PCR) NOT DETECTED 11/29/23 11:50 Salicylates < 1.5 mg/dL 11/29/23 11:19 Urine Opiates Screen NEGATIVE (NEGATIVE) 11/29/23 11:44 Ur Buprenorphine Scrn NEGATIVE (NEGATIVE) 11/29/23 11:44 Ur Oxycodone Screen NEGATIVE (NEGATIVE) 11/29/23 11:44 Urine Methadone Screen NEGATIVE (NEGATIVE) 11/29/23 11:44 Acetaminophen 0.1 ug/mL 11/29/23 11:19 Ur Barbiturates Screen NEGATIVE (NEGATIVE) 11/29/23 11:44 Ur Tricyclics Screen NEGATIVE (NEGATIVE) 11/29/23 11:44 Ur Phencyclidine Scrn NEGATIVE (NEGATIVE) 11/29/23 11:44 Ur Amphetamine Screen NEGATIVE (NEGATIVE) 11/29/23 11:44 U Methamphetamines Scrn NEGATIVE (NEGATIVE) 11/29/23 11:44 U Benzodiazepines Scrn NEGATIVE (NEGATIVE) 11/29/23 11:44 Urine Cocaine Screen NEGATIVE (NEGATIVE) 11/29/23 11:44 U Cannabinoids Screen NEGATIVE (NEGATIVE) 11/29/23 11:44 Ur Drug Screen Comment CUTOFF CONC BELOW: 11/29/23 11:44 Ethyl Alcohol < 10.0 mg/dL 11/29/23 11:19
[2023-12-03 08:07] LABS: CALCIUM 9.4 mg/dL (8.5-10.3); CREATININE 0.8 mg/dL (0.6-1.3); POTASSIUM 3.8 mmol/L (3.5-4.5)
[2023-12-03] MEDS: metFORMIN 500 MG TABLET PO SCH (08:13)
[2023-12-03] MEDS: CHOLECALCIFEROL 5,000 UNIT CAPSULE PO SCH (08:13)
[2023-12-03 08:23] LABS: THYROID STIMULATING HORMONE 1.61 uIU/mL (0.34-5.60)
--- NOTE | 2023-12-03 18:40 | PROVIDER PROGRESS NOTE ---
Assessment/Plan - Problem List (1) NPH (normal pressure hydrocephalus) Assessment/Plan: She did cooperate for CT but needed Ativan p.o. during the test. This was read as having enlarged ventricles and findings consistent with NPH. No strokes were seen. Patient does have signs of dementia, did have urinary incontinence for the first 2 days here and does exhibit ataxia with poor balance with turning Plan: She will need outpatient neurology soon, and neurosurgery management, possibly a shunt placed. I reviewed the diagnosis and plan, and brought the patient, sister and 1 daughter at bedside, a summary of NPH, written by [facility] (2) Hyponatremia Assessment/Plan: Suspect multifactorial due to use of diuretics, use of Seroquel and from drinking about 3L of water daily. She received 3% saline and NS Then wanted her IV not restarted and she has been on a salt tablet for the last 2 days. Na 118>> 122>> 129>> 131 today. I checked her urine sodium, and it was appropriately low, ruling out SIADH Plan: Remain off Seroquel Remain off HCTZ permanenetly Continue on salt tablet daily. Cont free water restriction, I discussed with pt and sister a daughter at bedside today, to promote solutes, like broths, juices, milk, and energy drinks or solute packets. Follow BMP daily (3) Altered mental status Conclusion/Plan: She is slowly improving daily. She still exhibits poor memory, but no longer has paranoia, and is not jumping from topic to topic. Likely multifactorial due to possible mild serotonin syndrome and hyponatremia, and poss NPH by imaging. She had a Telepsych evaluation and the psychiatrist thought this was delirium from hyponatremia and her recent UTI CT head was abn (as per #1) Vitamin D level extremely low and may have added to the problem She was seen by physical therapy and is able to walk 400 feet, needs a walker for balance for turning. OT saw her as well and confirms that she has poor insight, poor judgment, poor memory. Plan: Patient is not safe to live alone at home. She herself does not want to live alone anymore. Sister and daughter at bedside are interested in learning about her going to [facility] at discharge Cont to treat low Na as above If becomes agitated, use benzos Cont home gabapentin Will not start Seroquel Start vitamin D 5000 units daily Will also check B12 and TSH levels (4) Insomnia Daughter reported she had not slept in 1 week. Plan: Benzos prn (5) Diabetes type 2, controlled Conclusion/Plan: Chronic. Stable. A1c in 05/2023 was 6.3 and is 6.8 here. 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 Patient states she was "drinking water as she was instructed in order to flush herself". Plan: A Reg diet was ordered since she is eating very little. Food from the outside is allowed. She had forgotten that I told her this yesterday. (7) HTN (hypertension) Conclusion/Plan: BP has been elevated, suspect due to possible mild serotonin syndrome on top of agitation/confusion Plan: Remain off HCTZ permanently Cont the restarted home lisinopril Qualifiers: Hypertension type: primary hypertension Qualified Code(s): I10 - Essential (primary) hypertension (8) Chronic pain Conclusion/Plan: Has pain in her back and hips which is chronic and has lately limited her desire to get out of the home. Plan: Cont home gabapentin and celebrex Tylenol prn for pain also Qualifiers: Chronic pain type: chronic pain syndrome Qualified Code(s): G89.4 - Chronic pain syndrome (9) Fever Conclusion/Plan: RESOLVED Received dose of cefepime in ED for presumed infection. UA, respiratory panel, CXR unremarkable. S/p recent course of nitrofurantoin for UTI. WBC normal. Suspect fever was related to drug reaction/possible mild serotonin syndrome. Differential dx includes GUNITE MIXER infection, bloodstream infection (both unlikely). Blood cultures are all negative to date Plan: Anti-pyretics prn Remain off further antibiotics - Current Meds Current Meds: Current Medications Generic Name Dose Route Start Last Admin Trade Name Freq PRN Reason Stop Dose Admin Celecoxib 100 mg 12/01/23 09:00 12/03/23 08:13 Celecoxib 100 Mg Capsule PO 100 mg DAILY TALIB Administration Cholecalciferol 5,000 unit 12/03/23 09:00 12/03/23 08:13 Cholecalciferol 5,000 Unit Capsule PO 5,000 unit DAILY TALIB Administration Gabapentin 300 mg 11/30/23 22:00 12/03/23 13:23 Gabapentin 300 Mg Capsule PO 300 mg TID TALIB Administration Insulin Human Lispro 1 - 9 unit 12/02/23 08:00 12/03/23 17:57 Insulin Lispro 300 Unit/3 Ml Pen SUBQ Not Given 0800,1200,1700,2100 [facility] Protocol Lisinopril 40 mg 11/30/23 18:42 12/03/23 08:13 Lisinopril 20 Mg Tablet PO 40 mg DAILY TALIB Administration Metformin HCl 750 mg 12/03/23 09:00 12/03/23 08:13 Metformin 500 Mg Tablet PO 750 mg DAILY TALIB Administration Multivitamins/Minerals 1 tab 12/01/23 17:00 12/03/23 08:13 Multivitamin W/Minerals Tablet PO 1 tab DAILYWM TALIB Administration Sodium Chloride 10 ml 11/29/23 17:00 12/03/23 17:57 Sodium Chloride Flush 0.9% 10 Ml Syringe IVP Not Given 0100,0900,1700 [facility] Sodium Chloride 1 gm 11/30/23 14:05 12/03/23 08:13 Sodium Chloride 1 Gm Tablet PO 1 gm DAILY TALIB Administration - Lab Result Fish Bone Diagrams: 12/01/23 05:23 12/03/23 07:51 - Additional Planning My Orders: My Active Orders 12/03/23 09:00 Cholecalciferol [Vitamin D3] 5,000 unit PO DAILY metFORMIN [Glucophage] 750 mg PO DAILY 12/04/23 05:00 BMP - BASIC METABOLIC PANEL [CHEM] DAILYLAB 12/04/23 09:00 polyethylene glycoL 3350 [Miralax] 17 gm PO DAILY Subjective - Subjective Patient Reports: Feeling Better, No Complaints, Other (Still has poor memory (She cannot remember that I allowed food from the outside brought in by her sister)) Nursing Reports: Other (Is eating 25 to 75% of her tray now) Objective Vital Signs: Vital Signs - 24 hr 12/03/23 12/03/23 12/03/23 02:13 07:42 15:45 Temperature 36.7 C 36.6 C 36.4 C L Heart Rate [ 84 72 97 Brachial] Respiratory 16 16 16 Rate Blood Pressure 139/63 H 143/65 H 142/65 H [Right Brachial artery] O2 Saturation 97 95 95 Oxygen O2 Source Room air I&O (Last 24 Hrs): Intake and Output Totals x24h 12/01/23 12/02/23 12/03/23 23:59 23:59 23:59 Intake Total 640 710 490 Balance 640 710 490 General: Alert, No acute distress, Other (She is not exhibiting any paranoid speech today) HEENT: EOMI, Mucous membr. moist/pink Neck: Supple Neuro: Alert, Non Focal, Other (Poor memory. Had loss of balance when turning with PT. No further paranoid ideation) Cardiovascular: Regular rate Respiratory: No respiratory distress Abdomen: Soft, No tenderness Extremities: No edema, No tenderness/swelling, Other (Skin scrape over the right lateral malleolus noted) - Results Results: Laboratory Results WBC 6.0 x10^3/uL (4.8-10.8) 12/01/23 05:23 RBC 3.90 10^6/uL (4.20-5.40) L 12/01/23 05:23 Hgb 12.0 g/dL (12.0-16.0) 12/01/23 05:23 Hct 34.8 % (37.0-47.0) L 12/01/23 05:23 MCV 89.2 fL (81.0-99.0) 12/01/23 05:23 MCH 30.8 pg (27.0-31.0) 12/01/23 05:23 MCHC 34.5 g/dL (32.0-36.0) 12/01/23 05:23 RDW 11.8 % (12.0-15.0) L 12/01/23 05:23 Plt Count 292 10^3/uL (130-450) 12/01/23 05:23 MPV 9.1 fL (7.9-10.8) 12/01/23 05:23 Neut # (Auto) 3.7 10^3/uL (1.5-6.6) 12/01/23 05:23 Lymph # (Auto) 1.1 10^3/uL (1.5-3.5) L 12/01/23 05:23 [place] # (Auto) 0.9 10^3/uL (0.0-1.0) 12/01/23 05:23 Eos # (Auto) 0.3 10^3/uL (0.0-0.7) 12/01/23 05:23 Baso # (Auto) 0.0 10^3/uL (0.0-0.1) 12/01/23 05:23 Absolute Nucleated RBC 0.00 x10^3/uL 12/01/23 05:23 Nucleated RBC % 0.0 /100WBC 12/01/23 05:23 Sodium 131 mmol/L (135-145) L 12/03/23 07:51 Potassium 3.8 mmol/L (3.5-4.5) 12/03/23 07:51 Chloride 100 mmol/L (101-111) L 12/03/23 07:51 Carbon Dioxide 24 mmol/L (21-32) 12/03/23 07:51 Anion Gap 7.0 (6-13) 12/03/23 07:51 BUN 17 mg/dL (6-20) 12/03/23 07:51 Creatinine 0.8 mg/dL (0.6-1.3) 12/03/23 07:51 Estimated GFR (MDRD) 69 (>89) L 12/03/23 07:51 Glucose 145 mg/dL (74-104) H 12/03/23 07:51 POC Whole Bld Glucose 140 mg/dL (70 - 100) H 12/03/23 16:42 Estimat Average Glucose 148 mg/dL (70-100) H 11/30/23 07:44 Hemoglobin A1c % 6.8 % (4.27-6.07) H 11/30/23 07:44 Lactic Acid 1.2 mmol/L (0.5-2.2) 11/29/23 11:19 Calcium 9.4 mg/dL (8.5-10.3) 12/03/23 07:51 Magnesium 2.1 mg/dL (1.7-2.3) 12/02/23 05:55 Total Bilirubin 0.8 mg/dL (0.2-1.0) 11/29/23 11:19 AST 24 IU/L (10-42) 11/29/23 11:19 ALT 20 IU/L (10-60) 11/29/23 11:19 Alkaline Phosphatase 49 IU/L (42-121) 11/29/23 11:19 Total Protein 6.5 g/dL (6.4-8.9) 11/29/23 11:19 Albumin 4.2 g/dL (3.2-5.5) 11/29/23 11:19 Globulin 2.3 g/dL (2.1-4.2) 11/29/23 11:19 Albumin/Globulin Ratio 1.8 (1.0-2.2) 11/29/23 11:19 Lipase 38 U/L (11-82) 11/29/23 11:19 Vitamin B12 309 pg/mL (180-914) 12/01/23 13:55 Vitamin D 25-Hydroxy 21.4 ng/mL (30.0-100.0) L 12/02/23 13:23 TSH 1.61 uIU/mL (0.34-5.60) 12/03/23 07:51 Urine Color YELLOW 11/29/23 11:44 Urine Clarity CLEAR (CLEAR) 11/29/23 11:44 Urine pH 7.0 PH (5.0-7.5) 11/29/23 11:44 Ur Specific [place] 1.010 (1.002-1.030) 11/29/23 11:44 Urine Protein NEGATIVE mg/dL (NEGATIVE) 11/29/23 11:44 Urine Glucose (UA) NEGATIVE mg/dL (NEGATIVE) 11/29/23 11:44 Urine Ketones 40 mg/dL (NEGATIVE) H 11/29/23 11:44 Urine Occult Blood NEGATIVE (NEGATIVE) 11/29/23 11:44 Urine Nitrite NEGATIVE (NEGATIVE) 11/29/23 11:44 Urine Bilirubin NEGATIVE (NEGATIVE) 11/29/23 11:44 Urine Urobilinogen 0.2 (NORMAL) E.U./dL (NORMAL) 11/29/23 11:44 Ur Leukocyte Esterase NEGATIVE (NEGATIVE) 11/29/23 11:44 Ur Microscopic Review NOT INDICATED 11/29/23 11:44 Urine Culture Comments NOT INDICATED 11/29/23 11:44 Urine Sodium 18.1 mmol/L 12/02/23 14:52 Nasal Adenovirus (PCR) NOT DETECTED 11/29/23 11:50 Nasal B. parapertussis DNA (PCR) NOT DETECTED 11/29/23 11:50 Nasal Coronavir 229E PCR NOT DETECTED 11/29/23 11:50 Nasal Coronavir HKU1 PCR NOT DETECTED 11/29/23 11:50 Nasal Coronavir NL63 PCR NOT DETECTED 11/29/23 11:50 Nasal Coronavir OC43 PCR NOT DETECTED 11/29/23 11:50 Nasal Enterovir/Rhinovir PCR NOT DETECTED 11/29/23 11:50 Nasal Influenza B PCR NOT DETECTED 11/29/23 11:50 Nasal Influenza A PCR NOT DETECTED 11/29/23 11:50 Nasal Parainfluen 1 PCR NOT DETECTED 11/29/23 11:50 Nasal Parainfluen 2 PCR NOT DETECTED 11/29/23 11:50 Nasal Parainfluen 3 PCR NOT DETECTED 11/29/23 11:50 Nasal Parainfluen 4 PCR NOT DETECTED 11/29/23 11:50 Nasal RSV (PCR) NOT DETECTED 11/29/23 11:50 Nasal B.pertussis DNA PCR NOT DETECTED 11/29/23 11:50 Nasal C.pneumoniae (PCR) NOT DETECTED 11/29/23 11:50 Joss Human Metapneumo PCR NOT DETECTED 11/29/23 11:50 Nasal M.pneumoniae (PCR) NOT DETECTED 11/29/23 11:50 Nasal SARS-CoV-2 (PCR) NOT DETECTED 11/29/23 11:50 Salicylates < 1.5 mg/dL 11/29/23 11:19 Urine Opiates Screen NEGATIVE (NEGATIVE) 11/29/23 11:44 Ur Buprenorphine Scrn NEGATIVE (NEGATIVE) 11/29/23 11:44 Ur Oxycodone Screen NEGATIVE (NEGATIVE) 11/29/23 11:44 Urine Methadone Screen NEGATIVE (NEGATIVE) 11/29/23 11:44 Acetaminophen 0.1 ug/mL 11/29/23 11:19 Ur Barbiturates Screen NEGATIVE (NEGATIVE) 11/29/23 11:44 Ur Tricyclics Screen NEGATIVE (NEGATIVE) 11/29/23 11:44 Ur Phencyclidine Scrn NEGATIVE (NEGATIVE) 11/29/23 11:44 Ur Amphetamine Screen NEGATIVE (NEGATIVE) 11/29/23 11:44 U Methamphetamines Scrn NEGATIVE (NEGATIVE) 11/29/23 11:44 U Benzodiazepines Scrn NEGATIVE (NEGATIVE) 11/29/23 11:44 Urine Cocaine Screen NEGATIVE (NEGATIVE) 11/29/23 11:44 U Cannabinoids Screen NEGATIVE (NEGATIVE) 11/29/23 11:44 Ur Drug Screen Comment CUTOFF CONC BELOW: 11/29/23 11:44 Ethyl Alcohol < 10.0 mg/dL 11/29/23 11:19
[2023-12-04] MEDS: ACETAMINOPHEN 325 MG TABLET PO PRN (00:47)
[2023-12-04 06:05] LABS: CALCIUM 9.2 mg/dL (8.5-10.3); CREATININE 0.8 mg/dL (0.6-1.3); POTASSIUM 4.1 mmol/L (3.5-4.5)
[2023-12-04] MEDS: polyethylene glycoL 3350 17 GM PACKET PO SCH (09:04)
--- NOTE | 2023-12-04 18:32 | PROVIDER PROGRESS NOTE ---
Assessment/Plan - Problem List (1) NPH (normal pressure hydrocephalus) Assessment/Plan: She did cooperate for CT but needed Ativan p.o. during the test. CT was read as having enlarged ventricles and findings consistent with NPH. No strokes were seen. Patient does have signs of dementia, did have urinary incontinence for the first 2 days here, and does exhibit ataxia with poor balance with turning Plan: She will need outpatient neurology eval soon, and neurosurgery management, possibly a shunt placed. I reviewed the diagnosis and plan again today at length with the patient, sister and ex- (Jey) at bedside today (2) Hyponatremia Assessment/Plan: Suspect multifactorial due to use of diuretics, use of Seroquel and from drinking about 3L of water daily. She received 3% saline and NS. Then she wanted her IV not restarted and she has been on a salt tablet for the last several days. Na 118>> 122>> 129>> 131>> 135 today. I checked her urine sodium, and it was appropriately low, ruling out SIADH Plan: Remain off Seroquel Remain off HCTZ permanenetly Continue on salt tablet daily. I will stop the free water restriction and see if she when she takes in ad binta. liquids of all kinds, what that does to her sodium by tomorrow's lab Follow BMP daily Anticipate discharge soon (3) Altered mental status Conclusion/Plan: She is slowly improving daily. She still exhibits poor memory, but no longer has paranoia, and is not jumping from topic to topic. Likely multifactorial due to possible mild serotonin syndrome and hyponatremia, and poss NPH by imaging. She had a Telepsych evaluation and the psychiatrist thought this was delirium from hyponatremia and her recent UTI CT head was done and is abn (as per #1) Vitamin D level extremely low and may have added to the problem B12 and TSH levels were OK She was seen by physical therapy and is able to walk 400 feet, needs a walker for balance for turning. OT saw her as well and confirms that she has poor insight, poor judgment, poor memory. Plan: Patient is not safe to live alone at home. She herself does not want to live alone anymore. Sister and ex- at bedside visited [place] and she may live there Cont to treat low Na as above Cont home gabapentin Will not restart Seroquel Cont vitamin D 5000 units daily (4) Insomnia Daughter reported she had not slept in 1 week. This has improved since paranoia resolved ~2 days ago Plan: Benzos prn (5) Diabetes type 2, controlled Conclusion/Plan: Chronic. Stable. A1c in 05/2023 was 6.3 and is 6.8 here. She was on metformin at home, but today I learned she was hardly eating anything for several days Plan: Restart Metformin A Reg diet was ordered since she was eating very little Cont hypoglycemia protocol, POC fingerstick checks, and ss Insulin, but right now not taking much PO Qualifiers: Diabetes mellitus meterman insulin use: without meterman use Diabetes mellitus complication status: with unspecified complications Qualified Code(s): E11.8 - Type 2 diabetes mellitus with unspecified complications (6) FTT Family says she had not eaten for 3 days. Patient states she was "drinking water as she was instructed in order to flush herself". A Reg diet was ordered since she is eating very little. Food from the outside is allowed. She had forgotten that I allowed that. Her appetite has improved Plan: Anticipate discharge soon (7) HTN (hypertension) Conclusion/Plan: BP has been elevated, suspect due to possible mild serotonin syndrome on top of agitation/confusion Plan: Remain off HCTZ permanently Cont the restarted home lisinopril Qualifiers: Hypertension type: primary hypertension Qualified Code(s): I10 - Essential (primary) hypertension (8) Chronic pain Conclusion/Plan: Has pain in her back and hips which is chronic and has lately limited her desire to get out of the home. Plan: Cont home gabapentin and celebrex Tylenol prn for pain also Qualifiers: Chronic pain type: chronic pain syndrome Qualified Code(s): G89.4 - Chronic pain syndrome (9) Fever Conclusion/Plan: RESOLVED Received dose of cefepime in ED for presumed infection. UA, respiratory panel, CXR unremarkable. S/p recent course of nitrofurantoin for UTI. WBC normal. Suspect fever was related to drug reaction/possible mild serotonin syndrome. Differential dx includes BEATER TENDER infection, bloodstream infection (both unlikely). Blood cultures are all negative to date Plan: Anti-pyretics prn, no antibiotics were needed - Current Meds Current Meds: Current Medications Generic Name Dose Route Start Last Admin Trade Name Freq PRN Reason Stop Dose Admin Acetaminophen 650 mg 11/29/23 13:05 12/04/23 00:47 Acetaminophen 325 Mg Tablet PO 650 mg Q4HR PRN Administration Pain 1 to 4, or Fever Celecoxib 100 mg 12/01/23 09:00 12/04/23 09:05 Celecoxib 100 Mg Capsule PO 100 mg DAILY TALIB Administration Cholecalciferol 5,000 unit 12/03/23 09:00 12/04/23 09:05 Cholecalciferol 5,000 Unit Capsule PO 5,000 unit DAILY TALIB Administration Gabapentin 300 mg 11/30/23 22:00 12/04/23 13:48 Gabapentin 300 Mg Capsule PO 300 mg TID TALIB Administration Insulin Human Lispro 1 - 9 unit 12/02/23 08:00 12/04/23 16:49 Insulin Lispro 300 Unit/3 Ml Pen SUBQ Not Given 0800,1200,1700,2100 [facility] Protocol Lisinopril 40 mg 11/30/23 18:42 12/04/23 09:05 Lisinopril 20 Mg Tablet PO 40 mg DAILY TALIB Administration Metformin HCl 750 mg 12/03/23 09:00 12/04/23 09:05 Metformin 500 Mg Tablet PO 750 mg DAILY TALIB Administration Multivitamins/Minerals 1 tab 12/01/23 17:00 12/04/23 09:04 Multivitamin W/Minerals Tablet PO 1 tab DAILYWM TALIB Administration Polyethylene Glycol 17 gm 12/04/23 09:00 12/04/23 09:04 Polyethylene Glycol 3350 17 Gm Packet PO 17 gm DAILY TALIB Administration Sodium Chloride 10 ml 11/29/23 17:00 12/04/23 16:50 Sodium Chloride Flush 0.9% 10 Ml Syringe IVP Not Given 0100,0900,1700 [facility] Sodium Chloride 1 gm 11/30/23 14:05 12/04/23 09:05 Sodium Chloride 1 Gm Tablet PO 1 gm DAILY TALIB Administration - Lab Result [place] Diagrams: 12/01/23 05:23 12/05/23 06:00 - Additional Planning My Orders: My Active Orders 12/04/23 09:00 polyethylene glycoL 3350 [Miralax] 17 gm PO DAILY 12/05/23 05:00 BMP - BASIC METABOLIC PANEL [CHEM] DAILYLAB CALCIUM [CHEM] DAILYLAB MAGNESIUM [CHEM] DAILYLAB PHOSPHORUS [CHEM] DAILYLAB 12/06/23 05:00 BMP - BASIC METABOLIC PANEL [CHEM] DAILYLAB 12/07/23 05:00 BMP - BASIC METABOLIC PANEL [CHEM] DAILYLAB Subjective - Subjective Patient Reports: Feeling Better Nursing Reports: Other (No more signs of paranoia but she has very slow processing, needs cueing, is impulsive.) Objective Vital Signs: Vital Signs - 24 hr 12/04/23 12/04/23 00:43 07:50 Temperature 36.4 C L 36.6 C Heart Rate [ 79 68 Brachial] Respiratory 18 20 Rate Blood Pressure 161/70 H 141/63 H [Right Brachial artery] O2 Saturation 98 96 Oxygen O2 Source Room air I&O (Last 24 Hrs): Intake and Output Totals x24h 12/02/23 12/03/23 12/04/23 23:59 23:59 23:59 Intake Total 710 490 400 Output Total 1 Balance 710 489 400 General: Alert, Oriented x3 HEENT: EOMI, Mucous membr. moist/pink Neck: Supple, No JVD Neuro: Alert, Non Focal, Other (Slow to answer, seems to have slow processing. Mem) Cardiovascular: Regular rate Respiratory: No respiratory distress Abdomen: No tenderness Extremities: No clubbing, No edema, No tenderness/swelling, Other (Skin tear on R lat malleolus) - Results Results: Laboratory Results WBC 6.0 x10^3/uL (4.8-10.8) 12/01/23 05:23 RBC 3.90 10^6/uL (4.20-5.40) L 12/01/23 05:23 Hgb 12.0 g/dL (12.0-16.0) 12/01/23 05:23 Hct 34.8 % (37.0-47.0) L 12/01/23 05:23 MCV 89.2 fL (81.0-99.0) 12/01/23 05:23 MCH 30.8 pg (27.0-31.0) 12/01/23 05:23 MCHC 34.5 g/dL (32.0-36.0) 12/01/23 05:23 RDW 11.8 % (12.0-15.0) L 12/01/23 05:23 Plt Count 292 10^3/uL (130-450) 12/01/23 05:23 MPV 9.1 fL (7.9-10.8) 12/01/23 05:23 Neut # (Auto) 3.7 10^3/uL (1.5-6.6) 12/01/23 05:23 Lymph # (Auto) 1.1 10^3/uL (1.5-3.5) L 12/01/23 05:23 [place] # (Auto) 0.9 10^3/uL (0.0-1.0) 12/01/23 05:23 Eos # (Auto) 0.3 10^3/uL (0.0-0.7) 12/01/23 05:23 Baso # (Auto) 0.0 10^3/uL (0.0-0.1) 12/01/23 05:23 Absolute Nucleated RBC 0.00 x10^3/uL 12/01/23 05:23 Nucleated RBC % 0.0 /100WBC 12/01/23 05:23 Sodium 135 mmol/L (135-145) 12/04/23 05:39 Potassium 4.1 mmol/L (3.5-4.5) 12/04/23 05:39 Chloride 103 mmol/L (101-111) 12/04/23 05:39 Carbon Dioxide 25 mmol/L (21-32) 12/04/23 05:39 Anion Gap 7.0 (6-13) 12/04/23 05:39 BUN 18 mg/dL (6-20) 12/04/23 05:39 Creatinine 0.8 mg/dL (0.6-1.3) 12/04/23 05:39 Estimated GFR (MDRD) 69 (>89) L 12/04/23 05:39 Glucose 149 mg/dL (74-104) H 12/04/23 05:39 POC Whole Bld Glucose 118 mg/dL (70 - 100) H 12/04/23 16:42 Estimat Average Glucose 148 mg/dL (70-100) H 11/30/23 07:44 Hemoglobin A1c % 6.8 % (4.27-6.07) H 11/30/23 07:44 Lactic Acid 1.2 mmol/L (0.5-2.2) 11/29/23 11:19 Calcium 9.2 mg/dL (8.5-10.3) 12/04/23 05:39 Magnesium 2.1 mg/dL (1.7-2.3) 12/02/23 05:55 Total Bilirubin 0.8 mg/dL (0.2-1.0) 11/29/23 11:19 AST 24 IU/L (10-42) 11/29/23 11:19 ALT 20 IU/L (10-60) 11/29/23 11:19 Alkaline Phosphatase 49 IU/L (42-121) 11/29/23 11:19 Total Protein 6.5 g/dL (6.4-8.9) 11/29/23 11:19 Albumin 4.2 g/dL (3.2-5.5) 11/29/23 11:19 Globulin 2.3 g/dL (2.1-4.2) 11/29/23 11:19 Albumin/Globulin Ratio 1.8 (1.0-2.2) 11/29/23 11:19 Lipase 38 U/L (11-82) 11/29/23 11:19 Vitamin B12 309 pg/mL (180-914) 12/01/23 13:55 Vitamin D 25-Hydroxy 21.4 ng/mL (30.0-100.0) L 12/02/23 13:23 TSH 1.61 uIU/mL (0.34-5.60) 12/03/23 07:51 Urine Color YELLOW 11/29/23 11:44 Urine Clarity CLEAR (CLEAR) 11/29/23 11:44 Urine pH 7.0 PH (5.0-7.5) 11/29/23 11:44 Ur Specific [place] 1.010 (1.002-1.030) 11/29/23 11:44 Urine Protein NEGATIVE mg/dL (NEGATIVE) 11/29/23 11:44 Urine Glucose (UA) NEGATIVE mg/dL (NEGATIVE) 11/29/23 11:44 Urine Ketones 40 mg/dL (NEGATIVE) H 11/29/23 11:44 Urine Occult Blood NEGATIVE (NEGATIVE) 11/29/23 11:44 Urine Nitrite NEGATIVE (NEGATIVE) 11/29/23 11:44 Urine Bilirubin NEGATIVE (NEGATIVE) 11/29/23 11:44 Urine Urobilinogen 0.2 (NORMAL) E.U./dL (NORMAL) 11/29/23 11:44 Ur Leukocyte Esterase NEGATIVE (NEGATIVE) 11/29/23 11:44 Ur Microscopic Review NOT INDICATED 11/29/23 11:44 Urine Culture Comments NOT INDICATED 11/29/23 11:44 Urine Sodium 18.1 mmol/L 12/02/23 14:52 Nasal Adenovirus (PCR) NOT DETECTED 11/29/23 11:50 Nasal B. parapertussis DNA (PCR) NOT DETECTED 11/29/23 11:50 Nasal Coronavir 229E PCR NOT DETECTED 11/29/23 11:50 Nasal Coronavir HKU1 PCR NOT DETECTED 11/29/23 11:50 Nasal Coronavir NL63 PCR NOT DETECTED 11/29/23 11:50 Nasal Coronavir OC43 PCR NOT DETECTED 11/29/23 11:50 Nasal Enterovir/Rhinovir PCR NOT DETECTED 11/29/23 11:50 Nasal Influenza B PCR NOT DETECTED 11/29/23 11:50 Nasal Influenza A PCR NOT DETECTED 11/29/23 11:50 Nasal Parainfluen 1 PCR NOT DETECTED 11/29/23 11:50 Nasal Parainfluen 2 PCR NOT DETECTED 11/29/23 11:50 Nasal Parainfluen 3 PCR NOT DETECTED 11/29/23 11:50 Nasal Parainfluen 4 PCR NOT DETECTED 11/29/23 11:50 Nasal RSV (PCR) NOT DETECTED 11/29/23 11:50 Nasal B.pertussis DNA PCR NOT DETECTED 11/29/23 11:50 Nasal C.pneumoniae (PCR) NOT DETECTED 11/29/23 11:50 Joss Human Metapneumo PCR NOT DETECTED 11/29/23 11:50 Nasal M.pneumoniae (PCR) NOT DETECTED 11/29/23 11:50 Nasal SARS-CoV-2 (PCR) NOT DETECTED 11/29/23 11:50 Salicylates < 1.5 mg/dL 11/29/23 11:19 Urine Opiates Screen NEGATIVE (NEGATIVE) 11/29/23 11:44 Ur Buprenorphine Scrn NEGATIVE (NEGATIVE) 11/29/23 11:44 Ur Oxycodone Screen NEGATIVE (NEGATIVE) 11/29/23 11:44 Urine Methadone Screen NEGATIVE (NEGATIVE) 11/29/23 11:44 Acetaminophen 0.1 ug/mL 11/29/23 11:19 Ur Barbiturates Screen NEGATIVE (NEGATIVE) 11/29/23 11:44 Ur Tricyclics Screen NEGATIVE (NEGATIVE) 11/29/23 11:44 Ur Phencyclidine Scrn NEGATIVE (NEGATIVE) 11/29/23 11:44 Ur Amphetamine Screen NEGATIVE (NEGATIVE) 11/29/23 11:44 U Methamphetamines Scrn NEGATIVE (NEGATIVE) 11/29/23 11:44 U Benzodiazepines Scrn NEGATIVE (NEGATIVE) 11/29/23 11:44 Urine Cocaine Screen NEGATIVE (NEGATIVE) 11/29/23 11:44 U Cannabinoids Screen NEGATIVE (NEGATIVE) 11/29/23 11:44 Ur Drug Screen Comment CUTOFF CONC BELOW: 11/29/23 11:44 Ethyl Alcohol < 10.0 mg/dL 11/29/23 11:19
[2023-12-05 06:23] LABS: CALCIUM 9.7 mg/dL (8.5-10.3); CREATININE 0.8 mg/dL (0.6-1.3); MAGNESIUM 1.8 mg/dL (1.7-2.3); PHOSPHORUS 3.6 mg/dL (2.5-5.0); POTASSIUM 4.2 mmol/L (3.5-4.5)
[2023-12-05 07:31] VITALS: BP 162/63; O2SAT 96
--- NOTE | 2023-12-05 12:40 | Discharge Plan ---
Discharge Plan Problem Reviewed?: Yes Disposition: Home Health Service Condition: Fair Prescriptions: Sodium Chloride [Salt Tab] 1 gm PO DAILY #30 tab Cholecalciferol (Vitamin D3) [Vitamin D3] 1,250 mcg PO DAILY #30 tab Diet: Diabetic Activity Restrictions: Activity as Tolerated Shower Restrictions: No Driving Restrictions: Yes (No driving because of "water on the brain") Assistance Devices: Walker Weight Bearing: Full Weight Instruction Topics: ED Shunt Ventriculo Peritoneal Health Concerns: You were hospitalized to manage a very low sodium level that added to your confusion and weakness. You were not eating adequately and needed adjustment of your diabetes management. We found you to have normal pressure hydrocephalus (water on the brain) which is adding to your poor memory, slow information processing and abnormal gait. You received IV saline then you were switched to a salt tablet daily, and that has brought up your serum sodium. You now need to see a Neurologist for managing the water on the brain. The referral to a Neurologist needs to come from your primary care provider. Keep the upcoming appointment with your primary care provider in the next few days. You are being discharged home today with new prescription for 1 salt tablet kurtis ly and daily vitamin D. The prescriptions were electronically sent to your [email or web address] pharmacy in [place]. Please stay well-hydrated. We talked about you drinking more than just regular water daily. Use thirst as your mechanism to know how much liquids to drink, but do not "flush yourself". Follow the list of medications provided to you. You may resume all your usual pre-hospital medications BUT STOP TAKING the Hydrochlorothiazide (HCTZ), because this is a diuretic and it makes you lose sodium. Also, your cholesterol medicine should be taken nightly, not in the daytime. A referral has been sent for a Home Health agency to provide you with in-home physical therapy, occupational therapy, a bath aide, and an RN to check on you. Plan of Treatment: As above. Care Goals: Improvement in symptoms and stabilization are the goals. Assessment: The patient and family understand and are agreeable with the plan. Additional Instructions or Follow Up instructions: If you have new or worsening symptoms, call your primary care provider for advice, or go to a Walk-In clinic, or come to the ER. No Smoking: If you smoke, Please STOP! Call for help. Follow-up with: Liza Crooks MD [Provider Admit Priv/Credential] -
--- NOTE | 2023-12-05 12:48 | DISCHARGE SUMMARY ---
Discharge Summary Admit Date: 11/29/23 Discharge Date: 12/05/23 Discharging Provider: Dr Fadumo Crowley Primary Care Provider: Dr Liza Crooks Condition at Discharge: Fair Discharge Disposition: [facility] History of Present Illness: Per Dr Humphries H&P: Unable to obtain from patient due to altered mental status, so info obtained from sister and daughter at bedside. Patient lives alone in a condo and recently insisted to her sister that she wants to move into a senior facility as she is lonely and has difficulty with the long vargas (patient lived in [place] for most of her life and has been here 5y). Family states patient has been progressively worsening with confusion over the past 4-5 mo and there was concern for dementia. She was to get a neuro eval in [place] last month but delayed this appointment. She was in her usual state of health until 11/12 when she went to a walk-in clinic in [place], [place] for confusion and was dx with UTI. She was given nitrofurantoin and then cefdinir (urine cx at that time grew Klebsiella). She only took these new ones for 2-3d then stopped because they made her sick, and the doctor told her to finish the first antibiotic and get rechecked. She was to get rechecked this week but delayed this appointment. She seemed to be back to her normal mental status until the past several days when she became more acutely agitated, had not been sleeping (usually sleeps ok), and was more confused. She was in ED for this 11/24. Na 125 at that time, was given IVF and mental status improved, MRI brain was negative, so she was sent home with Rx for Seroquel for her agitation in setting of presumed dementia. No im provement was noted on the Seroquel and in fact she seemed a bit worse with her agitation. Family denies that patient was drinking excessive amounts of water, but she is on HCTZ. The confusion continued and last night she was more agitated and confused, had fever to 103, so was brought to the ED. In ED Na 118, UA + ketones, ASA and Tylenol levels neg. She was given 1L NS and 100 mL 3% saline. She was noted to be febrile, cefepime was started. Patient's niece is ill with pneumonia and sepsis and is currently in the hospital. Sister and daughter at bedside agree patient should be DNR. This patient may actually have serotonin syndrome. I did consider malignant neuroleptic syndrome but she is not rigid. If she does have serotonin syndrome it is mild. Not requiring benzodiazepines or other treatment. Treatment will be supportive care. At this time I am not continuing antibiotics as I do not think this problem is infection. When she is asleep she is calm, no restless movement. But when I wake her up and speak to her she smiles. Occasionally answers no. Follows my commands. But is restless with legs being bent at the knees, walking back and forth. Head turning right and left, to and fro. But she denies any pain. We will be checking sodium every 6 hours. She is already received 1 dose of hypertonic saline. I will hold off on resuming maintenance normal saline until I know what the sodium is. - CONSULTS | PROCEDURES Consultations: Telepsych - HOSPITAL COURSE Hospital Course: (1) Altered mental status She went from obtunded to groggy to awake and confused to speaking and paranoid and refusing food but interacting, and finally to interacting, eating, walking with a walker with a continued poor memory. Cause was likely multifactorial: due to possible mild serotonin syndrome, due to marked hyponatremia, and due to poss NPH by imaging. Seroquel was stopped. She had a Telepsych evaluation when she exhibited paranoia, and the psychiatrist thought her mentation was delirium from hyponatremia and her recent UTI. Her TSH was normal, but Vitamin D level was extremely low and may have added to the problem, so she was discharged on daily vitamin D. Her actions remained impulsive and due to poor memory and poor gait, PT and OT recommended it was not safe for her to live alone at home, which she agreed with. Her sister arrived from [place] and friend (ex-) arrived from [place], and they took her home and they were arranging for her to live at [place]. (2) Fever She got a dose of cefepime empirically in ED for presumed infection. But her WBC was normal, and her U/A, respiratory panel, and CXR were unremarkable. She had recently finished a course of nitrofurantoin for a UTI. We suspected the fever was related to drug reaction/possible mild serotonin syndrome. Her Seroquel stopped. She defervesced the next day. She needed no antibiotics. (3) Hyponatremia Suspect multifactorial: due to use of HCTZ diuretic, use of Seroquel and from drinking about 3L of water daily, in order to "flush herself" while treating the UTI. Her Seroquel and HCTZ were stopped. She received 3% saline the NS, then wanted her IV not restarted and she was put on a salt tablet daily plus a free water restriction. Her Na improved from 118>> 122>> 129>> 131>> 135 at time of discharge. I checked her urine sodium, and it was appropriately low, ruling out SIADH. At discharge, she was instructed to remain off Seroquel, remain off HCTZ and continue on 1 salt tablet daily. Her free water restriction was lifted, as it was felt she could try to not "flush herself". She needs her serum sodium checked in several days to assure the sodium is not too high, and to decide about continuing the salt tablet. (4) NPH (normal pressure hydrocephalus) She needed sedatives to undergo head CT. It was read as having enlarged ventricles and findings consistent with NPH. No strokes were seen. Patient does have the triplet of signs seen with NPH: dementia, did have urinary incontinence, and did exhibit ataxia and poor balance (when turning). She needs to be seen by outpatient neurology soon, to evaluate and possibly arrange for neurosurgery shunt placement. The recommendations were reviewed with patient, sister, 2 daughters and ex-. (5) Insomnia Daughter reported she had not slept in 1 week. I ordered Benzos prn. She started sleeping when her paranoia resolved. (6) Diabetes type 2, controlled A1c in 05/2023 was 6.3 and was 6.8 here. She was on metformin at home, which was on hold while she refused to eat for several days, and she was on sliding scale insulin (7) FTT Family reported she has not eaten for 3 days. Patient stated she was "drinking water as she was instructed, in order to flush herself". A Reg diet was ordered and food from the outside was allowed. Her appetite improved while she was here. (8) HTN (hypertension) BP has been elevated, suspect due to possible mild serotonin syndrome on top of agitation/confusion. We resumed her Lisinopril and she should remain off HCTZ permanently due to hyponatremia. (9) Chronic pain Has pain in her back and hips which is chronic and has lately limited her desire to get out of the home. We continued her gabapentin and celebrex. - ALLERGIES Allergies/Adverse Reactions: Allergies Allergy/AdvReac Type Severity Reaction Status Date / Time Penicillins Allergy Unknown Verified 11/29/23 10:51 - MEDICATIONS Home Medications: Ambulatory Orders Medication Instructions Recorded Confirmed Gabapentin [Neurontin] 300 mg PO TID 11/24/23 11/29/23 Lisinopril [Zestril] 40 mg PO DAILY 11/24/23 11/29/23 metFORMIN [Glucophage] 750 mg PO DAILY 11/24/23 11/29/23 Celecoxib 100 mg PO DAILY 11/29/23 11/29/23 Estradiol [Estrace] 0.5 mg PO DAILY 11/29/23 11/29/23 Cholecalciferol (Vitamin D3) 1,250 mcg PO DAILY #30 tab 12/05/23 [Vitamin D3] Simvastatin [Zocor] 40 mg PO QPM #0 12/05/23 11/29/23 Sodium Chloride [Salt Tab] 1 gm PO DAILY #30 tab 12/05/23 - PHYSICAL EXAM AT DISCHARGE General Appearance: positive: No acute distress, Alert, Other (Disheveled) Eyes Bilateral: positive: Normal inspection, EOMI ENT: positive: ENT inspection nml, No signs of dehydration Neck: positive: Nml inspection, No JVD Respiratory: positive: No respiratory distress, Breath sounds nml Cardiovascular: positive: Regular rate & rhythm, No murmur Abdomen: positive: Non-tender, Nml bowel sounds, No distention Skin: positive: Warm, Dry Extremities: positive: No pedal edema, Other (Skin scrape on R lat ankle) Neurologic/Psychiatric: positive: Oriented x3, CN's nml (2-12), Other (Slow to answer, speech is normal, poor memory) - LABS Result Diagrams: 12/01/23 05:23 12/05/23 06:00 - FOLLOW UP Follow Up: See PCP later this week at previously scheduled appointment. Needs referral to [facility] see a Neurologist. - TIME SPENT Time Spent in Discharge (Minutes): 45
== END 2023-12-05 13:17 | disposition home health service (06) | DRG 948 ==
LOC: EDUNIT# → EDBD → ED 10:47 → MS2 13:05
PROVIDERS: ADMIT Specialist; ATTEND Internal Medicine
DX: R41.82 Altered mental status, unspecified (principal); E87.1 Hypo-osmolality and hyponatremia; G91.2 (Idiopathic) normal pressure hydrocephalus; E55.9 Vitamin D deficiency, unspecified; Z11.52 Encounter for screening for COVID-19; R50.9 Fever, unspecified; G47.00 Insomnia, unspecified; E11.9 Type 2 diabetes mellitus without complications; R62.7 Adult failure to thrive; I10 Essential (primary) hypertension; M54.9 Dorsalgia, unspecified; M25.551 Pain in right hip; M25.552 Pain in left hip; E78.00 Pure hypercholesterolemia, unspecified; G89.4 Chronic pain syndrome; Z66 Do not resuscitate; Z79.84 Long term (current) use of oral hypoglycemic drugs; Z79.890 Hormone replacement therapy; Z79.899 Other long term (current) drug therapy; Z85.43 Personal history of malignant neoplasm of ovary; Z87.440 Personal history of urinary (tract) infections; Z88.0 Allergy status to penicillin; Z90.710 Acquired absence of both cervix and uterus; Z90.722 Acquired absence of ovaries, bilateral; Z90.79 Acquired absence of other genital organ(s)
CPT/HCPCS: 36415; 70450; 71045; 80048; 80053; 80143; 80306; 81003; 82306; 82607; 83036; 83605; 83690; 83735; 84100; 84295; 84300; 84425; 84443; 85025; 87040; 87633; 96374; 97116; 97162; 97166; 97530; 97535; 99285; 99291; A9270; G0480; J0131; J2060; J8499; Q3014; 80179; 81001; 82077; 87086

== ENCOUNTER 2023-12-30 10:07 | Outpatient (CLI) | payer MEDICARE, OTHER ==
[2023-12-30 16:06] LABS: CREATININE 1.3 mg/dL (0.6-1.3); POTASSIUM 4.1 mmol/L (3.5-4.5)
== END 2023-12-30 10:08 | disposition home or self-care (01) ==
LOC: LAB.S 10:07
PROVIDERS: ATTEND Internal Medicine
DX: E87.1 Hypo-osmolality and hyponatremia (principal)
CPT/HCPCS: 36415; 80048

== ENCOUNTER 2024-01-25 14:46 | Outpatient (CLI) | payer MEDICARE, OTHER | END 2024-01-25 23:59 | disposition EMS.NT | LOC: EMS 14:46 | DX: R61 Generalized hyperhidrosis (principal); E11.649 Type 2 diabetes mellitus with hypoglycemia without coma ==

== ENCOUNTER 2024-02-07 18:00 | Emergency (ER) | payer MEDICARE, OTHER ==
[2024-02-07 18:39] VITALS: BP 137/50; O2SAT 100
--- NOTE | 2024-02-07 18:49 | ED Physician Documentation ---
History of Present Illness - Stated complaint Stated Complaint: BACK PX/ANXIETY - Chief complaint Chief Complaint: General - History obtained from History obtained from: Patient, Family - Additonal information Additional information: She presents with her daughter for chief complaint of anxiety. She is been anxious for quite some time. She had been on Seroquel a few months ago but seemed to make her worse and she went to the clinic today for this and was referred here to rule out hyponatremia as that was a problem on admission a couple of months ago. She has a presumptive diagnosis of dementia but not confirmed. She is now living with family. Much of the history is from the daughter as the patient is a rambling, vacillating and poor historian. For me the patient says she has no complaints. The daughter is specifically worried about her anxiety, chronic back pain. 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: Ovarian cancer : None HEENT: None Psych: Other Musculoskeletal: Osteoarthritis, Chronic back pain Derm: None - Past Surgical History Past Surgical History: Yes Ortho: Knee replacement /CHINCHILLA MACHINE OPERATOR: Hysterectomy, Oophrectomy - Present Medications Home Medications: Ambulatory Orders Medication Instructions Recorded Confirmed Gabapentin [Neurontin] 300 mg PO HS 11/24/23 02/07/24 Lisinopril [Zestril] 20 mg PO DAILY 11/24/23 02/07/24 metFORMIN [Glucophage] 750 mg PO BID 11/24/23 02/07/24 Celecoxib 100 mg PO BID 11/29/23 02/07/24 Estradiol [Estrace] 0.5 mg PO DAILY 11/29/23 02/07/24 Simvastatin [Zocor] 40 mg PO QPM #0 12/05/23 02/07/24 Glimepiride 1 mg PO DAILY 02/07/24 02/07/24 - Allergies Allergies/Adverse Reactions: Allergies Allergy/AdvReac Type Severity Reaction Status Date / Time Penicillins Allergy Unknown Verified 02/07/24 18:07 - Social History Does the pt smoke?: No Smoking Status: Former smoker Does the pt drink ETOH?: No Does the pt have substance abuse?: No - Immunizations Immunizations are current?: Yes - POLST Patient has POLST: No POLST Status: DNR PD ED PE NORMAL - Vitals Vital signs reviewed: Yes - General General: Alert and oriented X 3, Other (She is alert and oriented to person and place and time but not events. She is a rambling historian and does not want to be here.) - HEENT HEENT: PERRL, EOMI - Back Back: No spinal TTP - Extremities Extremities: Other (Normal gait) Results - Vitals Vitals: Vital Signs - 24 hr 02/07/24 18:07 Temperature 36.1 C L Heart Rate 66 Respiratory 18 Rate Blood Pressure 137/50 H O2 Saturation 100 Oxygen O2 Source Room air - Labs Labs: Laboratory Tests 02/07/24 18:41 Sodium 133 L Potassium 4.5 Chloride 97 L Carbon Dioxide 24 Anion Gap 12.0 BUN 23 H Creatinine 1.1 Estimated GFR (MDRD) 48 L Glucose 66 L Calcium 10.4 H Magnesium 1.7 PD Medical Decision Making - ED course ED course: She presents for anxiety in the setting of likely dementia. Also chronic back pain. For the chronic back pain, this is not new and recommended Tylenol for same. We attempted to do the Mini-Mental status examination but the patient refused to cooperate. That said her slow answers and rambling history are consistent with likely dementia. I discussed with the daughter that given her poor reaction to Seroquel in the past I would be uncomfortable prescribing anything for anxiety acutely and they probably need to follow-up with geriatric psychiatry. There is no emergency medical condition present. Per the clinic I am going to check her sodium level, but her symptoms really are not consistent with hyponatremia. Departure - Departure Disposition: 01 Home, Self Care Clinical Impression: Anxiety Condition: Good Record reviewed to determine appropriate education?: Yes Instructions: ED Dementia Caregiver Support, ED Dementia Alzheimer Follow-Up: Liza Crooks MD [Primary Care Provider] - Comments: Your sodium today is 133 which is not a concerning level as far as neuropsychiatric side effects as it was earlier in the year when it was 118. Follow-up with Liza Crooks, consideration for referral to neurology and geriatric psychiatry. Return for new or worsening concerns. Forms: PCP List
[2024-02-07 18:53] LABS: MAGNESIUM 1.7 mg/dL (1.7-2.3)
[2024-02-07 18:59] LABS: CALCIUM 10.4 mg/dL (8.5-10.3); CREATININE 1.1 mg/dL (0.6-1.3); POTASSIUM 4.5 mmol/L (3.5-4.5)
== END 2024-02-07 18:58 | disposition home or self-care (01) ==
LOC: ED 18:00
DX: F41.9 Anxiety disorder, unspecified (principal); I10 Essential (primary) hypertension; E78.00 Pure hypercholesterolemia, unspecified; E11.9 Type 2 diabetes mellitus without complications; Z85.43 Personal history of malignant neoplasm of ovary; Z79.84 Long term (current) use of oral hypoglycemic drugs; Z79.899 Other long term (current) drug therapy
CPT/HCPCS: 36415; 80048; 83735; 99283

== ENCOUNTER 2024-04-10 12:50 | Outpatient (CLI) | payer MEDICARE, OTHER | END 2024-04-10 23:59 | disposition critical access hospital (66) | LOC: EMS 12:50 | DX: R10.33 Periumbilical pain (principal); R11.10 Vomiting, unspecified | CPT/HCPCS: A0425; A0427 ==

== ENCOUNTER 2024-04-10 13:18 | Emergency (ER) | payer MEDICARE, OTHER ==
--- NOTE | 2024-04-10 13:51 | ED Physician Documentation ---
PD HPI ABD PAIN - Stated complaint Stated Complaint: ABD PX - Chief complaint Chief Complaint: Abd Pain - History obtained from History obtained from: Patient - Additional information Additional information: 78-year-old woman presents by ambulance accompanied by daughter for evaluation of abdominal pain. She developed diffuse abdominal pain starting last night. It is associated with 8-10 episodes of vomiting. Has not had a bowel movement in 2 days. Says she has had a hysterectomy and oophorectomy, no other abdominal surgeries. No pain like this in the past. No fevers. PD PAST MEDICAL HISTORY - Past Medical History Cardiovascular: Hypertension, High cholesterol Respiratory: None Neuro: None Endocrine/Autoimmune: Type 2 diabetes GI: None MEDICAL ACCOUNTANT: Ovarian cancer : None HEENT: None Psych: Other Musculoskeletal: Osteoarthritis, Chronic back pain Derm: None - Past Surgical History Past Surgical History: Yes Ortho: Knee replacement /MEDICAL ACCOUNTANT: Hysterectomy, Oophrectomy - Present Medications Home Medications: Ambulatory Orders Medication Instructions Recorded Confirmed Gabapentin [Neurontin] 300 mg PO HS 11/24/23 02/07/24 Lisinopril [Zestril] 20 mg PO DAILY 11/24/23 02/07/24 metFORMIN [Glucophage] 750 mg PO BID 11/24/23 02/07/24 Celecoxib 100 mg PO BID 11/29/23 02/07/24 Estradiol [Estrace] 0.5 mg PO DAILY 11/29/23 02/07/24 Simvastatin [Zocor] 40 mg PO QPM #0 12/05/23 02/07/24 Glimepiride 1 mg PO DAILY 02/07/24 02/07/24 - Allergies Allergies/Adverse Reactions: Allergies Allergy/AdvReac Type Severity Reaction Status Date / Time Penicillins Allergy Unknown Verified 04/10/24 13:44 - Social History Does the pt smoke?: No Smoking Status: Never smoker Does the pt drink ETOH?: No Does the pt have substance abuse?: No - Immunizations Immunizations are current?: Yes - POLST Patient has POLST: No POLST Status: DNR PD ED PE NORMAL - Vitals Vital signs reviewed: Yes - General General: Alert and oriented X 3, No acute distress - Cardiac Cardiac: RRR, No murmur - Respiratory Respiratory: No respiratory distress, Clear bilaterally - Abdomen Abdomen: Normal bowel sounds, Soft, Other (Mild tenderness in the left greater than right abdomen kind of diffusely. No surgical signs.) - Neuro Neuro: Alert and oriented X 3 Eye Opening: Spontaneous Motor: Obeys Commands Results - Vitals Vitals: Vital Signs - 24 hr 04/10/24 13:38 Temperature 36.9 C Heart Rate 71 Respiratory 12 Rate Blood Pressure 122/58 L O2 Saturation 95 Oxygen O2 Source Room air - Labs Labs: Laboratory Tests 04/10/24 04/10/24 04/10/24 14:00 14:00 15:20 WBC 12.5 H RBC 3.67 L Hgb 11.2 L Hct 34.6 L MCV 94.3 MCH 30.5 MCHC 32.4 RDW 12.9 Plt Count 315 MPV 10.2 Neut # (Auto) 11.2 H Lymph # (Auto) 0.7 L [place] # (Auto) 0.5 Eos # (Auto) 0.0 Baso # (Auto) 0.0 Absolute Nucleated RBC 0.00 Nucleated RBC % 0.0 Sodium 136 Potassium 4.5 Chloride 100 L Carbon Dioxide 29 Anion Gap 7.0 BUN 24 H Creatinine 1.0 Estimated GFR (MDRD) 53 L Glucose 140 H Calcium 9.6 Total Bilirubin 0.3 AST 12 ALT 11 Alkaline Phosphatase 43 Total Protein 5.9 L Albumin 3.9 Globulin 2.0 L Albumin/Globulin Ratio 2.0 Lipase 24 Urine Color YELLOW Urine Clarity CLEAR Urine pH 6.0 Ur Specific [place] 1.020 Urine Protein NEGATIVE Urine Glucose (UA) NEGATIVE Urine Ketones TRACE Urine Occult Blood NEGATIVE Urine Nitrite NEGATIVE Urine Bilirubin NEGATIVE Urine Urobilinogen 0.2 (NORMAL) Ur Leukocyte Esterase NEGATIVE Ur Microscopic Review NOT INDICATED Urine Culture Comments NOT INDICATED - Rads (name of study) CT KUB- Partial SBO Relevant Findings:: Final report received, EMP independent interpretation of test PD Medical Decision Making - ED course ED course: 78-year-old woman presents with acute abdominal pain with no bowel movement. She has bowel sounds with mild tenderness. Workup in the emergency department demonstrates an unremarkable CBC demonstrate mild leukocytosis and anemia, chemistry panel with mild prerenal azotemia and negative urinalysis. CT done, she refused IV contrast, shows us partial small bowel obstruction. At the conclusion of that she was pain-free and was offered admission would like to go home and trial a clear liquid diet. Departure - Departure Disposition: Home, Self Care Clinical Impression: Partial bowel obstruction Qualifiers: Intestinal obstruction type: unspecified Qualified Code(s): K56.600 - Partial intestinal obstruction, unspecified as to cause Condition: Good Record reviewed to determine appropriate education?: Yes Instructions: Obstruction Sm Bowel, ED Diet Soft, ED Diet Clear Liquid Comments: Clear liquid diet for the next 24 hours, see the enclosed instructions. After 24 hours you can advance to what is called a soft mechanical diet. So also see the enclosed instructions. Call your doctor to arrange a follow-up appointment, make the next available appointment. In the interim, return anytime if worse or if new symptoms develop. Forms: PCP List
[2024-04-10 14:09] LABS: BASOPHILS % (AUTO) 0.2 %; EOSINOPHILS % (AUTO) 0.3 %; HCT - HEMATOCRIT 34.6 % (37.0-47.0); HGB - HEMOGLOBIN 11.2 g/dL (12.0-16.0); LYMPHOCYTES # (AUTO) 0.7 10^3/uL (1.5-3.5); LYMPHOCYTES % (AUTO) 5.8 %; MEAN CORPUSCULAR HEMOGLOBIN 30.5 pg (27.0-31.0); MEAN CORPUSCULAR HGB CONC 32.4 g/dL (32.0-36.0); MEAN CORPUSCULAR VOLUME 94.3 fL (81.0-99.0); MEAN PLATELET VOLUME 10.2 fL (7.9-10.8); MONOCYTES # (AUTO) 0.5 10^3/uL (0.0-1.0); MONOCYTES % (AUTO) 3.8 %; NEUTROPHILS # (AUTO) 11.2 10^3/uL (1.5-6.6); NEUTROPHILS % (AUTO) 89.6 %; PLT - PLATELET COUNT 315 10^3/uL (130-450); RED BLOOD COUNT 3.67 10^6/uL (4.20-5.40); RED CELL DISTRIBUTION WIDTH 12.9 % (12.0-15.0); WHITE BLOOD COUNT 12.5 x10^3/uL (4.8-10.8)
[2024-04-10 14:21] LABS: ALBUMIN 3.9 g/dL (3.2-5.5); BILIRUBIN,TOTAL 0.3 mg/dL (0.2-1.0); CALCIUM 9.6 mg/dL (8.5-10.3); POTASSIUM 4.5 mmol/L (3.5-4.5); TOTAL PROTEIN 5.9 g/dL (6.4-8.9)
[2024-04-10] MEDS ORDERED: iohexoL-300 100 ML VIAL ONE (14:42)
[2024-04-10 15:27] LABS: BILIRUBIN,URINE NEGATIVE (NEGATIVE); GLUCOSE, URINE (UA) NEGATIVE (NEGATIVE); KETONES,URINE (UA) TRACE mg/dL (NEGATIVE); LEUKOCYTE ESTERASE, URINE NEGATIVE (NEGATIVE); NITRITE,URINE NEGATIVE (NEGATIVE); OCCULT BLOOD,URINE NEGATIVE (NEGATIVE); PROTEIN,URINE NEGATIVE (NEGATIVE); UROBILINOGEN,URINE 0.2 (NORMAL) E.U./dL (NORMAL)
--- NOTE | 2024-04-10 15:29 | CT Report ---
PROCEDURE: Abdomen/Pelvis WO INDICATIONS: abd pain, pt refused IV contrast TECHNIQUE: A CT scan of the abdomen and pelvis was performed without the use of intravenous contrast. Images we re recorded and evaluated at appropriate window settings. Reformats: coronal and sagittal. For radiat ion dose reduction, the following was used: automated exposure control, adjustment of mA and/or kV ac cording to patient size. COMPARISON: CT abdomen pelvis 01/01/2023 FINDINGS: Image quality: Diagnostic. Lower chest: Heart is enlarged with minimal pericardial effusion. Liver: No contour-deforming mass. Gallbladder: Unremarkable. Biliary tree: No intrahepatic or extrahepatic dilation, accounting for age. Spleen: No splenomegaly. Pancreas: No pancreatic ductal dilation. Adrenals: No adrenal nodule. Kidneys and ureters: No hydronephrosis. No contour-deforming mass. Mild atrophy, right greater than l eft. Bilateral mild perinephric stranding is present. No visualized stones. Stomach, bowel and peritoneum: Stomach is distended. There is mild cluster of fluid-filled small lian l loops within the mid/central abdomen greatest dimension measuring 3.2 cm. No definitive transition point is identified but felt to be within the left hemiabdomen.. Colonic diverticula are present with out visualized inflammatory change. Lymph nodes: No central or retroperitoneal adenopathy. Vessels: No infrarenal aortic aneurysm. Reproductive organs: Unremarkable. Bladder: Bladder wall thickness is normal, accounting for underdistention. No calcified bladder stone s. Pelvic lymph nodes: No adenopathy by size criteria. Bones: No aggressive osseous abnormality. Other: No significant ventral or inguinal hernia. IMPRESSION: Dilated fluid-filled loops of small bowel within the central abdomen as above most consistent with pa rtial small bowel obstruction. Transition point is not definitively identified but felt to be within the left hemiabdomen. Reviewed by: Elisa Jones MD on 04/10/2024 3:27 PM PDT Approved by: Elisa Jones MD on 04/10/2024 3:27 PM PDT Station ID: [id number]
[2024-04-10 15:31] LABS: CLARITY,URINE CLEAR (CLEAR)
[2024-04-10 16:05] VITALS: BP 160/95; O2SAT 96
== END 2024-04-10 15:59 | disposition home or self-care (01) ==
LOC: EDUNIT# → ED 13:18
DX: K56.600 Partial intestinal obstruction, unspecified as to cause (principal); I10 Essential (primary) hypertension; E78.00 Pure hypercholesterolemia, unspecified; E11.9 Type 2 diabetes mellitus without complications; Z79.84 Long term (current) use of oral hypoglycemic drugs; Z79.899 Other long term (current) drug therapy
CPT/HCPCS: 36415; 80053; 81001; 81003; 83690; 85025; 87086; 99283; 99284